=== PATIENT | male | born 1945 | race Caucasian/White ===

== ENCOUNTER 2021-07-19 13:33 | Emergency (ER) | payer OTHER ==
[2021-07-19 14:59] LABS: Absolute Lymphocytes (CBC) 0.2 K/uL (0.7-4.9); Basophils % 0.3 % (0-1.3); Hematocrit 41.7 % (39.6-49.0); Lymphocytes % 1.7 % (15.3-44.8); MPV 8.3 fL (7.6-11.3); RBC Red Blood Cell Count 4.95 M/uL (4.33-5.43)
[2021-07-19 15:03] LABS: Protime INR 1.13
[2021-07-19 15:10] LABS: ALT/SGPT 49 U/L (12-78); AST/SGOT 40 U/L (15-37); Albumin 3.7 g/dL (3.4-5.0); Alkaline Phosphatase 72 U/L (45-117); BUN Blood Urea Nitrogen 22 mg/dL (7-18); Bicarbonate 25 mmol/L (21-32); Bilirubin Direct 0.2 mg/dL (0-0.2); Bilirubin Total 0.5 mg/dL (0.2-1.0); CKMB Creatine Kinase MB 2.1 ng/mL (1.0-3.6); Creatine Phosphokinase 120 U/L (39-308); Glucose Level 137 mg/dL (74-106); Lipase 123 U/L (73-393); Magnesium 1.5 mg/dL (1.8-2.4); NT PRO-BNP 356 pg/mL (<125); Potassium 3.9 mmol/L (3.5-5.1); Protein, Total 7.9 g/dL (6.4-8.2); Sodium Level 142 mmol/L (136-145); Troponin (Emerg Dept Use Only) < 0.02 ng/mL (0.0-0.045)
[2021-07-19] MEDS ORDERED: AZITHROMYCIN 500 MG INJ IVPB ONE (15:44)
[2021-07-19] MEDS ORDERED: CEFTRIAXONE 1000 MG/VIAL ONE (15:44)
[2021-07-19] MEDS ORDERED: ALBUTEROL 2.5 MG/3 ML NEB SOL ONE (15:44)
[2021-07-19] MEDS ORDERED: NA CHLORIDE 0.9% 100 ML ONE (15:45)
[2021-07-19] MEDS ORDERED: NA CHLORIDE 0.9% 50 ML ONE (15:45)
[2021-07-19] MEDS ORDERED: IPRATROPIUM BROM 0.5MG/2.5ML ONE (15:45)
--- NOTE | 2021-07-19 16:20 | RAD REPORT ---
EXAM DESCRIPTION: Emil Single View07/19/2021 2:46 pm CLINICAL HISTORY: Congestion COMPARISON: 2008 FINDINGS: Right base is hazy likely secondary to epicardial fat. The remainder of the right lung ap pears clear. Left hilum is mildly prominent. Calcified lung granulomas The heart is normal size IMPRESSION: Left hilum is mildly prominent which may indicate lymphadenopathy or confluence of vess els
--- NOTE | 2021-07-19 16:31 | RAD REPORT ---
EXAM DESCRIPTION: CT - Chest For Pe Angio - 07/19/2021 4:12 pm CLINICAL HISTORY: Chest pain TECHNIQUE: Dynamically enhanced axial 3 mm thick images of the chest were obtained during administra tion of <100> mL Isovue 370 IV contrast. Coronal and oblique reconstruction images were generated and reviewed. Exam utilizes a protocol for optimal evaluation of pulmonary arterial tree. Maximum intensity projections 3D imaging was utilized All CT scans are performed using dose optimization technique as appropriate and may include automated exposure control or mA/KV adjustment according to patient size. FINDINGS: A small amount of thrombus is suspected within right lower lobe sub segmental pulmonary ar michel A thoracic aortic aneurysm is not noted. A pleural effusion is not seen. A pericardial effusion is not seen. A 5 x 3.5 centimeter soft tissue mass is present within left subcarinal region extending into the lef t hilum and occluding the left distal mainstem bronchus. Calcified lung granulomas. 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 The bronchus is occluded. Bronchoscopy is recommended
[2021-07-19] MEDS ORDERED: DIPHENHYDRAMINE 50 MG/ML VIAL ONE (16:47)
[2021-07-19 17:41] LABS: Blood Morphology Comment NOT SEEN (NOT SEEN); Platelet Estimate ADEQ; White Blood Cell Scan OK (OK)
--- NOTE | 2021-07-19 18:23 | EDPHYS ---
Physician Documentation [facility] Name: Lazaro Doll Age: 75 yrs Sex: Male : 1945 Arrival Date: 07/19/2021 Time: 13:48 Bed 17 Private MD: ED Physician Mary Kay Valente HPI: 07/19 14:07 This 75 yrs old Male presents to ER via EMS with complaints of Shortness Of ma2 Breath. 14:07 The patient has shortness of breath at rest. Onset: The symptoms/episode began/occurred ma2 gradually, 1 month(s) ago. Associated signs and symptoms: Pertinent positives: productive cough, Pertinent negatives: fever, loss of consciousness, numbness in extremities. Severity of symptoms: At their worst the symptoms were moderate in the emergency department the symptoms are unchanged. The patient has not experienced similar symptoms in the past. Historical: - Allergies: 13:57 Aspirin; sl2 13:57 Demerol; sl2 13:57 Ibuprofen; sl2 13:57 Unable to obtain; sl2 13:57 Morphine; sl2 13:57 Codeine; sl2 13:57 Latex, Natural Rubber; sl2 13:57 Sulfa (Sulfonamide Antibiotics); sl2 13:57 Iodine; sl2 13:57 Oxycodone; sl2 13:57 Tetanus Vaccines \\T\\ Toxoid; sl2 13:57 PENICILLINS; sl2 - Home Meds: 19:41 sertraline 100 mg oral tab twice a day [Active]; clonidine HCl 0.1 mg Oral tab 1 tab 3 sl2 times per day [Active]; atorvastatin 20 mg oral tab 1 tab once daily [Active]; metoprolol tartrate 50 mg Oral tab 1 tab 2 times per day [Active]; nifedipine 90 mg Oral TbER 1 tab once daily [Active]; - PMHx: 19:44 colon Cancer; Hypertensive disorder; chemo, Radiation; sl2 - PSHx: 19:44 bowel resection; sl2 - Immunization history:: Adult Immunizations up to date, Client reports receiving the 2nd dose of the Covid vaccine. - Social history:: Smoking status: Patient/guardian denies using tobacco, the patient reports quitting approximately 25 years ago, Smoking status: Patient uses alcohol, weekly. - Family history:: not pertinent. ROS: 14:07 Constitutional: Negative for fever, chills, and weight loss. ma2 14:07 All other systems are negative. Exam: 14:07 Constitutional: This is a well developed, well nourished patient who is awake, alert, ma2 and in no acute distress. ENT: Nares patent. No nasal discharge, no septal abnormalities noted. Tympanic membranes are normal and external auditory canals are clear. Oropharynx with no redness, swelling, or masses, exudates, or evidence of obstruction, uvula midline. Mucous membranes moist. Neck: Trachea midline, no thyromegaly or masses palpated, and no cervical lymphadenopathy. Supple, full range of motion without nuchal rigidity, or vertebral point tenderness. No Meningismus. Chest/axilla: Normal chest wall appearance and motion. Nontender with no deformity. No lesions are appreciated. Cardiovascular: Regular rate and rhythm with a normal S1 and S2. No gallops, murmurs, or rubs. Normal PMI, no JVD. No pulse deficits. Respiratory: left lung sounds is deminished and rales present, No rales. there is mild expiratory wheezes noted. + increased work of breathing, no retractions or nasal flaring. Abdomen/GI: Soft, non-tender, with normal bowel sounds. No distension or tympany. No guarding or rebound. No evidence of tenderness throughout. Back: No spinal tenderness. No costovertebral tenderness. Full range of motion. Skin: Warm, dry with normal turgor. Normal color with no rashes, no lesions, and no evidence of cellulitis. MS/ Extremity: Pulses equal, no cyanosis. Neurovascular intact. Full, normal range of motion. Neuro: Awake and alert, GCS 15, oriented to person, place, time, and situation. Cranial nerves II-XII grossly intact. Motor strength 5/5 in all extremities. Sensory grossly intact. Cerebellar exam normal. Normal gait. Vital Signs: 13:51 BP 129 / 71; Pulse 97; Resp 24; Temp 99.8; Pulse Ox 93% on R/A; sl2 14:00 BP 153 / 84; Pulse 99; Resp 22; Temp 99.8(O); Pulse Ox 95% on R/A; sl2 16:00 BP 167 / 85; Pulse 85; Resp 18; Temp 99.0; Pulse Ox 95% on R/A; sl2 17:00 BP 167 / 85; Pulse 92; Resp 18; Pulse Ox 96% on R/A; sl2 17:30 BP 167 / 88; Pulse 81; Resp 20; Temp 98.9(O); Pulse Ox 98% on R/A; sl2 18:37 BP 141 / 86; Pulse 71; Resp 18; Temp 98.7; Pulse Ox 96% ; sl2 19:45 BP 118 / 84; Pulse 70; Resp 18; Pulse Ox 96% on R/A; Pain 0/10; sl2 MDM: 13:51 Patient medically screened. ma2 14:07 Differential diagnosis: Anxiety Reaction asthma, Bronchitis CHF exacerbation, Chronic ma2 Obstructive Pulmonary Disease. 17:06 Data reviewed: vital signs, nurses notes, EMS record. Counseling: I had a detailed ma2 discussion with the patient and/or guardian regarding: the historical points, exam findings, and any diagnostic results supporting the discharge/admit diagnosis, the presence of at least one elevated blood pressure reading (>120/80) during this emergency department visit, the need for further work-up and treatment in the hospital. Response to treatment: the patient's symptoms have markedly improved after treatment. 18:13 ED course: Patient has right lung segmental PE, and left hilar mass, largest i diameter ma2 is 5 cm. 18:21 ED course: Patient has a PE and bronchial tumor, he needs pulmonary medicine which is [facility] not available I called Dr. Reid twice at 4 PM and 5 PM, no callback, and he is not on-call. Requested higher level of care transfer emergent, patient is accepted by Dr. BATEMAN and Dr. Valdez. 07/19 14:07 Order name: BMP ma2 07/19 14:07 Order name: Blood Culture Adult (2) ma2 07/19 14:07 Order name: CBC with Diff ma2 07/19 14:07 Order name: CPK; Complete Time: 15:28 ma2 07/19 14:07 Order name: Ckmb; Complete Time: 15:28 ma2 07/19 14:07 Order name: D-Dimer; Complete Time: 15:28 ma2 07/19 14:07 Order name: Hepatic Function; Complete Time: 15:28 ma2 07/19 14:07 Order name: Lipase; Complete Time: 15:28 ma2 07/19 14:07 Order name: Magnesium; Complete Time: 15:28 ma2 07/19 14:07 Order name: NT PRO-BNP; Complete Time: 15:28 ma2 07/19 14:07 Order name: PT-INR; Complete Time: 15:28 ma2 07/19 14:07 Order name: Ptt, Activated; Complete Time: 15:28 ma2 07/19 14:07 Order name: Troponin (emerg Dept Use Only); Complete Time: 15:28 ma2 07/19 14:07 Order name: Basic Metabolic Panel; Complete Time: 15:28 EDMS 07/19 14:07 Order name: EKG; Complete Time: 14:08 ma2 07/19 14:07 Order name: Cardiac monitoring; Complete Time: 14:39 ma2 07/19 14:07 Order name: EKG - Nurse/Tech; Complete Time: 15:09 ma2 07/19 14:07 Order name: IV Saline Lock; Complete Time: 14:43 ma2 07/19 14:07 Order name: CT Chest For PE Angio; Complete Time: 16:34 ma2 07/19 14:07 Order name: Blood Culture EDMS 07/19 14:07 Order name: CBC with Automated Diff; Complete Time: 18:10 EDMS 07/19 14:10 Order name: COVID-19 SARS RT PCR (Document "Date of Onset" if Symptomatic); Complete ma2 Time: 18:10 07/19 14:27 Order name: Chest Single View XRAY; Complete Time: 16:27 ma2 07/19 17:41 Order name: CBC Smear Scan; Complete Time: 18:10 EDMS 07/19 14:07 Order name: Labs collected and sent; Complete Time: 14:43 ma2 07/19 14:07 Order name: O2 Per Protocol; Complete Time: 14:39 ma2 07/19 14:07 Order name: O2 Sat Monitoring; Complete Time: 14:39 ma2 Administered Medications: 03:52 Drug: Benadryl (diphenhydrAMINE) 50 mg Route: IVP; Site: left forearm; sl2 18:40 Follow up: Response: No adverse reaction sl2 14:35 Drug: AtroVENT (ipratropium) Aerosol 0.5 mg Route: Inhalation; sl2 14:35 Drug: Xopenex (levalbuterol) 1.25 mg Route: Inhalation; sl2 15:30 Drug: Rocephin (cefTRIAXone) 1 grams Route: IV; Rate: calculated rate; Site: left sl2 forearm; 16:02 Follow up: Response: No adverse reaction; IV Status: Completed infusion; IV Intake: [id number] 18:39 Follow up: IV Status: Completed infusion; IV Intake: 50ml sl2 16:20 Drug: AZITHromycin 500 mg Route: IVPB; Infused Over: 1 hrs; Site: left forearm; sl2 18:39 Follow up: IV Status: Completed infusion; IV Intake: 250ml sl2 18:48 Drug: Lovenox (enoxaparin) 70 mg Route: Sub-Q; Site: right lower abdomen; sl2 Disposition Summary: 07/19/21 18:23 Transfer Ordered Transfer Location: [facility] ma2 Reason: Higher level of care ma2 Condition: Stable ma2 Problem: new ma2 Symptoms: are unchanged ma2 Accepting Physician: Dr. Gamboa(07/19/21 20:39) df1 Diagnosis - Pulmonary embolism without acute cor pulmonale - with lung mass ma2 Forms: - Medication Reconciliation Form ma2 - SBAR form ma2 Signatures: Dispatcher [employer] EDMS Mary Kay Valente MD MD ma2 Mireille Pool df1 Kelly Franco RN RN sl2 Corrections: (The following items were deleted from the chart) 13:58 13:57 Allergies: No Known Allergies; sl2 sl2 20:39 18:23 Dr. Gamboa ma2 df1
--- NOTE | 2021-07-19 18:23 | ER ---
Nurse's Notes [facility] Name: Lazaro Doll Age: 75 yrs Sex: Male : 1945 Arrival Date: 07/19/2021 Time: 13:48 Bed 17 Private MD: Diagnosis: Pulmonary embolism without acute cor pulmonale-with lung mass Presentation: 07/19 13:51 Chief complaint: EMS states: Patient AAO X 3, presented to ED via [facility] with sl2 complaint of Shortness of breath X 4 weeks, went to [facility] 3 weeks ago with same complaint, wast tested for Covid and was negative at that time. Today Increased SOB noted with no improvement post albuterol inhaler at home. Enroute to ED solumedrol 125mg IV and albuterol administered by EMS team. Coronavirus screen: Vaccine status: Patient reports receiving the 2nd dose of the covid vaccine. Ebola Screen: Patient negative for fever greater than or equal to 101.5 degrees Fahrenheit, and additional compatible Ebola Virus Disease symptoms. Initial Sepsis Screen: Does the patient meet any 2 criteria? No. Patient's initial sepsis screen is negative. Does the patient have a suspected source of infection? No. Patient's initial sepsis screen is negative. Risk Assessment: Do you want to hurt yourself or someone else? Patient reports no desire to harm self or others. Onset of symptoms. 13:51 Method Of Arrival: EMS: [facility] 13:51 Acuity: LUCIO 2 sl2 Triage Assessment: 13:57 General: Appears in no apparent distress. well developed, Behavior is calm, sl2 cooperative. Pain: Denies pain. Respiratory: Reports shortness of breath Breath sounds are diminished in left posterior upper lobe and left posterior lower lobe Onset: The symptoms/episode began/occurred 4 weeks ago . Respiratory: Reports cough that is productive, Airway is patent Trachea midline Respiratory effort is even, unlabored. GI: No deficits noted. : No deficits noted. Derm: No deficits noted. Musculoskeletal: No deficits noted. 20:38 Respiratory: df1 Historical: - Allergies: 13:57 Aspirin; sl2 13:57 Demerol; sl2 13:57 Ibuprofen; sl2 13:57 Unable to obtain; sl2 13:57 Morphine; sl2 13:57 Codeine; sl2 13:57 Latex, Natural Rubber; sl2 13:57 Sulfa (Sulfonamide Antibiotics); sl2 13:57 Iodine; sl2 13:57 Oxycodone; sl2 13:57 Tetanus Vaccines \T\ Toxoid; sl2 13:57 PENICILLINS; sl2 - Home Meds: 19:41 sertraline 100 mg oral tab twice a day [Active]; clonidine HCl 0.1 mg Oral tab 1 tab 3 sl2 times per day [Active]; atorvastatin 20 mg oral tab 1 tab once daily [Active]; metoprolol tartrate 50 mg Oral tab 1 tab 2 times per day [Active]; nifedipine 90 mg Oral TbER 1 tab once daily [Active]; - PMHx: 19:44 colon Cancer; Hypertensive disorder; chemo, Radiation; sl2 - PSHx: 19:44 bowel resection; sl2 - Immunization history:: Adult Immunizations up to date, Client reports receiving the 2nd dose of the Covid vaccine. - Social history:: Smoking status: Patient/guardian denies using tobacco, the patient reports quitting approximately 25 years ago, Smoking status: Patient uses alcohol, weekly. - Family history:: not pertinent. Screenin:06 Abuse screen: Denies threats or abuse. Nutritional screening: No deficits noted. sl2 Tuberculosis screening: No symptoms or risk factors identified. Fall Risk None identified. Assessment: 14:06 General: Appears in no apparent distress. well developed, Behavior is calm, sl2 cooperative. Pain: Denies pain. Neuro: No deficits noted. Cardiovascular: No deficits noted. Cardiovascular: Rhythm is sinus rhythm. Respiratory: Reports shortness of breath at rest on exertion cough that is productive, Airway is patent Trachea midline Respiratory effort is even, unlabored, Breath sounds are diminished in left posterior upper lobe and left posterior lower lobe. GI: No deficits noted. : No deficits noted. EENT: No deficits noted. Derm: No deficits noted. Musculoskeletal: No deficits noted. 14:38 Reassessment: Portable CXR in progress at bedside. sl2 17:30 Reassessment: Initiated transfer with [facility]. DX PE and Mass. Awaiting phone ss call back from transfer center. Spoke with IVO in lab who states that COVID results will take 30 more minutes. Vital Signs: 13:51 BP 129 / 71; Pulse 97; Resp 24; Temp 99.8; Pulse Ox 93% on R/A; sl2 14:00 BP 153 / 84; Pulse 99; Resp 22; Temp 99.8(O); Pulse Ox 95% on R/A; sl2 16:00 BP 167 / 85; Pulse 85; Resp 18; Temp 99.0; Pulse Ox 95% on R/A; sl2 17:00 BP 167 / 85; Pulse 92; Resp 18; Pulse Ox 96% on R/A; sl2 17:30 BP 167 / 88; Pulse 81; Resp 20; Temp 98.9(O); Pulse Ox 98% on R/A; sl2 18:37 BP 141 / 86; Pulse 71; Resp 18; Temp 98.7; Pulse Ox 96% ; sl2 19:45 BP 118 / 84; Pulse 70; Resp 18; Pulse Ox 96% on R/A; Pain 0/10; sl2 ED Course: 13:48 Patient arrived in ED. am2 13:50 Kelly Fracno RN is Primary Nurse. sl2 13:51 Mary Kay Valente MD is Attending Physician. ma2 13:57 Triage completed. sl2 13:57 Arm band placed on right wrist. sl2 14:06 Patient has correct armband on for positive identification. Placed in gown. Bed in low sl2 position. Side rails up X2. Adult w/ patient. 14:06 Maintain EMS IV. Dressing intact. Good blood return noted. Site clean \T\ dry. Gauge \T\ sl 2 site: # 20 left forearam. 14:46 Chest Single View XRAY In Process Unspecified. EDMS 14:50 EKG done, by ED staff, reviewed by Mary Kay Valente MD. dh3 16:12 CT Chest For PE Angio In Process Unspecified. EDMS 20:38 No provider procedures requiring assistance completed. Patient transferred, IV remains df1 in place. Administered Medications: 03:52 Drug: Benadryl (diphenhydrAMINE) 50 mg Route: IVP; Site: left forearm; sl2 18:40 Follow up: Response: No adverse reaction sl2 14:35 Drug: AtroVENT (ipratropium) Aerosol 0.5 mg Route: Inhalation; sl2 14:35 Drug: Xopenex (levalbuterol) 1.25 mg Route: Inhalation; sl2 15:30 Drug: Rocephin (cefTRIAXone) 1 grams Route: IV; Rate: calculated rate; Site: left sl2 forearm; 16:02 Follow up: Response: No adverse reaction; IV Status: Completed infusion; IV Intake: [id number] 18:39 Follow up: IV Status: Completed infusion; IV Intake: 50ml sl2 16:20 Drug: AZITHromycin 500 mg Route: IVPB; Infused Over: 1 hrs; Site: left forearm; sl2 18:39 Follow up: IV Status: Completed infusion; IV Intake: 250ml sl2 18:48 Drug: Lovenox (enoxaparin) 70 mg Route: Sub-Q; Site: right lower abdomen; sl2 Intake: 16:02 IV: 50ml; Total: 50ml. sl2 18:39 IV: 50ml; Total: 100ml. sl2 18:39 IV: 250ml; Total: 350ml. sl2 Outcome: 18:23 ER care complete, transfer ordered by . ma2 20:38 Transferred to [facility]. df1 20:38 Condition: stable 20:38 Instructed on the need for transfer, Demonstrated understanding of instructions. 20:39 Patient left the ED. df1 Signatures: Dispatcher [employer] EDMS Rebeca Pathak RN RN ss Moreno, Amanda am2 Herrera, Deanna 3 Mary Kay Valente MD MD ma2 Furlich, Dawn df1 Kelly Franco RN RN sl2 Corrections: (The following items were deleted from the chart) 13:58 13:57 Allergies: No Known Allergies; sl2 sl2
[2021-07-19] MEDS ORDERED: ENOXAPARIN 80 MG/0.8 ML SQ ONE (19:46)
[2021-07-19 20:57] VITALS: TEMP 98.7; O2SAT 96
[2021-07-19 20:59] VITALS: BP 118/84
== END 2021-07-19 20:39 | disposition short-term general hospital (02) ==
LOC: ER 13:33
DX: I26.99 Other pulmonary embolism without acute cor pulmonale (principal); R91.8 Other nonspecific abnormal finding of lung field; I10 Essential (primary) hypertension; Z20.822 Contact with and (suspected) exposure to COVID-19; Z85.038 Personal history of other malignant neoplasm of large intestine; Z88.0 Allergy status to penicillin; Z88.2 Allergy status to sulfonamides; Z88.5 Allergy status to narcotic agent; Z88.6 Allergy status to analgesic agent; Z88.7 Allergy status to serum and vaccine; Z91.040 Latex allergy status; Z91.048 Other nonmedicinal substance allergy status
CPT/HCPCS: 96365; 96367; 93005; 87040 ×2; 85025; 80048; 36415; 83735; 82550; 85610; 85379; 80076; 85730; 84484; 82553; 83690; 83880; 71275; 71045; 96375; 96372; 99285; 96366; U0003; Q9967; J1200; J0456

== ENCOUNTER 2022-02-08 18:26 | Inpatient (IN) | payer OTHER ==
--- OUTSIDE RECORDS SUMMARY | 2022-02-08 18:29 | XMS REPORT | Continuity of Care Document ---
:1945 Author Organization [facility] t Address [address] [place] [address] Care Team Providers Name Role Phone ARIELLA WELLER Primary Care Physician Unavailable FIONA Attending Clinician Unavailable DERICK Attending Clinician Unavailable Ariella Weller Attending Clinician [phone] ALFREDITO Attending Clinician Unavailable Fiona JOHNS Attending Clinician SARABJIT Attending Clinician Unavailable FELICITAS Attending Clinician Unavailable Jett MCRAE Attending Clinician Unavailable OLIVE SCHAEFER Attending Clinician Unavailable DERICK Admitting Clinician Unavailable CASANDRA REES Admitting Clinician Unavailable OLIVE SCHAEFER Admitting Clinician Unavailable Payers Payer Name Policy Type Policy Number Effective Date Expiration Date S jorge luis MEDICARE PART A [id number] \\T\\ [id number] - MEDICARE [facility] - [id number] 2012 [place] 00:00:00 [place] [id number] 2011 [place] 00:00:00 [place] [id number] [place] MEDICARE A B [id number] 2011 00:00:00 [place] [id number] 2014 00:00:00 Problems Condition Condition Condition Status Onset Resolution Last Treating Co mments Source Name Details Category Date Date Treatment Clinician Date 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[facility] cell cell 00:00: of carcinoma) carcinoma) 00 Me dicin of of e bronchus, bronchus, left left No known No known Disease [facility] active active College problems problems of Medicin e Allergies, Adverse Reactions, Alerts Allergy Allergy Status Severity Reaction(s) Onset Inactive Treating Comm ents Source Name Type Date Date Clinician Iodine Propensi Active Itching 2020-09 [facility] ty to -12 College adverse 00:00: of reaction 00 Medicin s to e drug IODINE Allergy Active High Hives 2018- [facility] AND 0-09 IODIDE 00:00: CONTAINI 00 NG PRODUCTS Social History Social Habit Start Date Stop Date Quantity Comments Source Exposure to Not sure [facility] Colleg e SARS-CoV-2 (event) of Med icine Alcohol intake 2022-01-09 2022-01-09 2.86 /d [facility] lege 00:00:00 00:00:00 of Medicine Tobacco use and 2021-07-30 2021-07-30 Former smokeless [facility] exposure 00:00:00 00:00:00 tobacco user of Medicine Cigarettes smoked 2021-07-30 2021-07-30 [facility] current (pack per 00:00:00 00:00:00 of Medi day) - Reported Cigarette 2021-07-30 2021-07-30 [facility] pack-years 00:00:00 00:00:00 of Medicine History of tobacco 1996-02-19 Cigarette Smoker [facility] use 00:00:00 of Medicine Sex [birth year] [facility] 00:00:00 00:00:00 of Medicine Smoking Status Start Date Stop Date Source Ex-smoker 2021-07-30 00:00:00 2021-07-30 00:00:00 [facility] C olleluci of Medicine Medications Ordered Filled Start Stop Current Ordering Indication Dosage Frequency Signature Comments Components Source Medication Medication Date Date Medication? Clinician (SIG) Name Name NIFEdipine Yes 90mg Take 90 mg [facility] Osmotic 4-22 by mouth Colle ge 90 MG TB24 11:24: daily. of 47 Medicin e sertraline Yes 100mg Take 100 [facility] (ZOLOFT) 4-22 mg by College 100 MG 11:24: mouth of tablet 47 daily. Medicin e clonidine Yes .1mg Take 0.1 [facility] (CATAPRES) 4-22 mg by College 0.1 MG 11:24: mouth two of tablet 47 times Medicin daily. e metoprolol Yes 50mg Take 50 mg [facility] (LOPRESSOR) 4-22 by mouth Tj ege 50 MG 11:24: two times of tablet 47 daily. Medicin e alprazolam 2020-09 Yes .5mg Take 1 [facility] (XANAX) 0.5 1-17 Tablet by Col lege MG tablet 00:00: mouth as of 00 needed Medicin (Take 1 e tab 30 minutes prior to your scans, if needed, may repeat dose 30 minutes after taking the inital dose.). clonidine 2020-09 Yes .1mg Take 0.1 [facility] (CATAPRES) 1-15 mg by [place] 0.1 MG 13:38: mouth two of tablet 50 times Medicin daily. e metoprolol 2020-09 Yes 50mg Take 50 mg [facility] (LOPRESSOR) 1-15 by mouth Tj ege 50 MG 13:38: two times of tablet 50 daily. Medicin e NIFEdipine 2020-09 Yes 90mg Take 90 mg [facility] CR Osmotic 1-15 by mouth Colle ge 90 MG TB24 13:38: daily. of 50 Medicin e sertraline 2020-09 Yes 100mg Take 100 [facility] (ZOLOFT) 1-15 mg by [place] 100 MG 13:38: mouth of tablet 50 daily. Medicin e clonidine 2020-09 Yes .1mg Take 0.1 [facility] (CATAPRES) 1-12 mg by [place] 0.1 MG 11:14: mouth two of tablet 08 times Medicin daily. e metoprolol 2020-09 Yes 50mg Take 50 mg [facility] (LOPRESSOR) 1-12 by mouth Tj ege 50 MG 11:14: two times of tablet 08 daily. Medicin e NIFEdipine 2020-09 Yes 90mg Take 90 mg [facility] CR Osmotic 1-12 by mouth Colle ge 90 MG TB24 11:14: daily. of 08 Medicin e sertraline 2020-09 Yes 100mg Take 100 [facility] (ZOLOFT) 1-12 mg by [place] 100 MG 11:14: mouth of tablet 08 daily. Medicin e albuterol 2020-09- No 2.5mg 2.5 mg by [facility] (PROVENTIL) 1-04 11-05 Inhalation C ollege (5 MG/ML) 00:00: 04:59 route two of 0.5% 00 :00 times Medicin nebulizer daily. e solution ipratropium 2020-09- No .5mg 0.5 mg by [facility] (ATROVENT) 09-23 Inhalation Co llege 0.02 % 00:00: 04:59 route of nebulizer 00 :00 every 6 Medicin solution hours as e needed. Sodium 2020-09- No 5mL 5 mL by [facility] Chloride 3 09-23 Inhalation Co llege % NEBU 00:00: 04:59 route two of 00 :00 times Medicin daily. e Sodium 2020-09- No 5mL 5 mL by [facility] Chloride 3 09-23 Inhalation Co llege % NEBU 00:00: 04:59 route two of 00 :00 times Medicin daily. e Sodium 2020-09- No 5mL 5 mL by [facility] Chloride 3 09-23 Inhalation Co llege % NEBU 00:00: 04:59 route two of 00 :00 times Medicin daily. e Apixaban 5 2020-09- No 5mg Take 5 mg [facility] MG TABS 09-23 by mouth College 00:00: 05:59 two times of 00 :00 daily. Medicin e Apixaban 5 2020-09- No 5mg Take 5 mg [facility] MG TABS 09-23 by mouth College 00:00: 05:59 two times of 00 :00 daily. Medicin e ipratropium 2020-09- No .5mg 0.5 mg by [facility] (ATROVENT) 09-23 Inhalation Co llege 0.02 % 00:00: 00:00 route of nebulizer 00 :00 every 6 Medicin solution hours as e needed. albuterol 2020-09- No 2.5mg 2.5 mg by [facility] (PROVENTIL) 09-23 Inhalation C ollege (5 MG/ML) 00:00: 00:00 route two of 0.5% 00 :00 times Medicin nebulizer daily. e solution albuterol 2020-09 Yes 1{puff} 1 Puff by [facility] 108 (90 0-26 Inhalation Colleg e base) 00:00: route of mcg/act 00 every 4 Medicin inhaler hours as e needed. albuterol 2020-09 Yes 1{puff} 1 Puff by [facility] 108 (90 0-26 Inhalation Colleg e base) 00:00: route of mcg/act 00 every 4 Medicin inhaler hours as e needed. albuterol 2020-09 Yes 1{puff} 1 Puff by [facility] 108 (90 0-26 Inhalation Colleg e base) 00:00: route of mcg/act 00 every 4 Medicin inhaler hours as e needed. atorvastati Yes 20mg Take 20 mg Jovany n (LIPITOR) 9-30 by mouth [facility]ge 20 MG 00:00: daily. of tablet 00 Medicin e atorvastati Yes 20mg Take 20 mg Jovany n (LIPITOR) 9-30 by mouth [facility]j ege 20 MG 00:00: daily. of tablet 00 Medicin e atorvastati Yes 20mg Take 20 mg Jovany n (LIPITOR) 9-30 by mouth Tj ege 20 MG 00:00: daily. of tablet 00 Medicin e Na Yes [SUPREP] [facility]ovany Sulfate-K 9-13 Take as College Sulfate-Mg 00:00: directed. of Sulf 00 Medicin (SUPREP e BOWEL PREP KIT) 17.5-3.13-1 .6 GM/177ML SOLN Na No [SUPREP] [facility] Sulfate-K 9-13 11-15 Take as Colleg e Sulfate-Mg 00:00: 00:00 directed. o f Sulf 00 :00 Medicin (SUPREP e BOWEL PREP KIT) 17.5-3.13-1 .6 GM/177ML SOLN Vital Signs Vital Name Observation Time Observation Value Comments Source Systolic blood 2022-01-09 16:20:00 124 mm[Hg] [facility] pressure Medicine Diastolic blood 2022-01-09 16:20:00 75 mm[Hg] [facility] Medicine Heart rate 2022-01-09 16:20:00 87 /min [facility] Respiratory rate 2022-01-09 16:20:00 16 /min [facility] Body height 2022-01-09 16:20:00 180.3 cm [facility] C [facility]lege of Medicine Body weight 2022-01-09 16:20:00 90.266 kg [facility] C [facility]lege of Medicine BMI 2022-01-09 16:20:00 27.75 kg/m2 [facility] ollege of Medicine Systolic blood 2021-08-04 19:50:00 158 mm[Hg] [facility] pressure Medicine Diastolic blood 2021-08-04 19:50:00 89 mm[Hg] [facility] pressure Medicine Heart rate 2021-08-04 19:26:00 61 /min [facility] ollege of Medicine Body temperature 2021-08-04 19:26:00 36.72 Jannet [facility] Body height 2021-08-04 19:26:00 180.3 cm [facility] ollege of Medicine Body weight 2021-08-04 19:26:00 88.179 kg [facility] ollege of [facility] BMI 2021-08-04 19:26:00 27.11 kg/m2 [facility] ollege of Medicine Systolic blood 2021-08-01 17:14:00 125 mm[Hg] [facility] pressure Medicine Diastolic blood 2021-08-01 17:14:00 75 mm[Hg] [facility] pressure Medicine Heart rate 2021-08-01 17:14:00 60 /min [facility] ollege of Medicine Body temperature 2021-08-01 17:14:00 37.11 Jannet [facility] Respiratory rate 2021-08-01 17:14:00 16 /min [facility] Body height 2021-08-01 17:14:00 180.3 cm [facility] of [facility] Body weight 2021-08-01 17:14:00 88.451 kg [facility] ollege of Medicine BMI 2021-08-01 17:14:00 27.20 kg/m2 [facility] of [facility] HEIGHT 2021-07-29 12:54:00 180.3 cm WEIGHT 2021-07-29 12:54:00 89.359 kg HEIGHT 2021-07-23 09:20:00 180.3 cm WEIGHT 2021-07-23 09:20:00 88.451 kg HEIGHT 2021-07-19 21:59:00 180.3 cm HEIGHT 2021-07-23 09:20:00 180.3 cm WEIGHT 2021-07-23 09:20:00 88.451 kg HEIGHT 2021-07-19 21:59:00 180.3 cm Procedures This patient has no known procedures. Plan of Care Planned Activity Planned Date Details Comments Source Future Scheduled 2022-01-12 COVID-19 Vaccine (1) [employer] Test 09:18:48 [code = COVID-19 of Medicine Vaccine (1)] Future Scheduled 2022-01-12 Pneumococcal 65+ (1 [facility] Test 09:18:48 of 4 - PCV13) [code of Medic ine = Pneumococcal 65+ (1 of 4 - PCV13)] Future Scheduled 2022-01-12 TETANUS SHOT (ADULT) [employer] Test 09:18:48 [code = TETANUS SHOT of Medi cine (ADULT)] Future Scheduled 2022-01-12 BMI FOLLOW UP PLAN [facility] r College Test 09:18:48 [code = BMI FOLLOW of Medici ne UP PLAN] Future Scheduled 2022-01-12 Hepatitis C [facility] Tj [facility]ge Test 09:18:48 screening of Medicine (procedure) [code = 511190993] Future Scheduled 2022-01-12 ZOSTER VACCINE (1 of [employer] Test 09:18:48 2) [code = ZOSTER of Medicin e VACCINE (1 of 2)] Future Scheduled 2022-01-12 MEDICARE AWV [facility] Test 09:18:48 (Initial) [code = of Medicin e MEDICARE AWV (Initial)] Future Scheduled 2022-01-12 Abdominal aortic [facility] Test 09:18:48 aneurysm screening of Medici ne (procedure) [code = 105962472] Future Scheduled 2022-01-12 FALL SCREEN [code = [facility] Test 09:18:48 FALL SCREEN] of Medicine Future Scheduled 2022-01-12 FLU VACCINE > 6 [facility] Test 09:18:48 MONTHS [code = FLU of Medici ne VACCINE > 6 MONTHS] Future Scheduled 2022-01-12 Screening for [facility] Test 09:18:48 malignant neoplasm of Medici ne of colon (procedure) [code = 012766258] Future Scheduled 2021-08-05 COVID-19 Vaccine (1) [employer] Test 17:20:41 [code = COVID-19 of Medicine Vaccine (1)] Future Scheduled 2021-08-05 TETANUS SHOT (ADULT) [employer] Test 17:20:41 [code = TETANUS SHOT of Medi cine (ADULT)] Future Scheduled 2021-08-05 BMI FOLLOW UP PLAN [facility] Test 17:20:41 [code = BMI FOLLOW of Medici ne UP PLAN] Future Scheduled 2021-08-05 Hepatitis C [facility] Test 17:20:41 screening of Medicine (procedure) [code = 125560730] Future Scheduled 2021-08-05 ZOSTER VACCINE (1 of [facility] College Test 17:20:41 2) [code = ZOSTER of Medicin e VACCINE (1 of 2)] Future Scheduled 2021-08-05 MEDICARE AWV [facility] Test 17:20:41 (Initial) [code = of Medicin e MEDICARE AWV (Initial)] Future Scheduled 2021-08-05 Abdominal aortic [facility] Test 17:20:41 aneurysm screening of Medici ne (procedure) [code = 267448009] Future Scheduled 2021-08-05 FALL SCREEN [code = [facility] Test 17:20:41 FALL SCREEN] of Medicine Future Scheduled 2021-08-05 Pneumococcal 65+ (1 [facility] [employer] Test 17:20:41 of 1 - PPSV23) [code of Medi cine = Pneumococcal 65+ (1 of 1 - PPSV23)] Future Scheduled 2021-08-05 FLU VACCINE > 6 [facility] Test 17:20:41 MONTHS [code = FLU of Medici ne VACCINE > 6 MONTHS] Future Scheduled 2021-08-05 Screening for [facility] Test 17:20:41 malignant neoplasm of Medici ne of colon (procedure) [code = 958076999] Future Scheduled 2021-08-04 MRI BRAIN W WO 1 Occurrences [facility] C [facility] Test 15:09:43 CONTRAST [code = starting of Medicine 29518-0] 08/04/2021 until 08/04/2022 Future Scheduled 2021-08-04 CT PET SKULL-BASE 1 Occurrences [facility] r [facility] Test 15:09:43 MID-THIGH (13300) starting of Medicin e [code = 57925] 08/04/2021 until 08/04/2022 Future Scheduled 2021-08-04 COVID-19 Vaccine (1) [employer] Test 10:19:08 [code = COVID-19 of Medicine Vaccine (1)] Future Scheduled 2021-08-04 TETANUS SHOT (ADULT) [employer] Test 10:19:08 [code = TETANUS SHOT of Medi cine (ADULT)] Future Scheduled 2021-08-04 BMI FOLLOW UP PLAN [facility] Test 10:19:08 [code = BMI FOLLOW of Medici ne UP PLAN] Future Scheduled 2021-08-04 Hepatitis C [facility] Test 10:19:08 screening of Medicine (procedure) [code = 189946486] Future Scheduled 2021-08-04 ZOSTER VACCINE (1 of [employer] Test 10:19:08 2) [code = ZOSTER of Medicin e VACCINE (1 of 2)] Future Scheduled 2021-08-04 MEDICARE AWV [facility] Test 10:19:08 (Initial) [code = of Medicin e MEDICARE AWV (Initial)] Future Scheduled 2021-08-04 Abdominal aortic [facility] Test 10:19:08 aneurysm screening of Medici ne (procedure) [code = 070548532] Future Scheduled 2021-08-04 FALL SCREEN [code = [facility] 10:19:08 FALL SCREEN] of Medicine Future Scheduled 2021-08-04 Pneumococcal 65+ (1 [facility] Test 10:19:08 of 1 - PPSV23) [code of Medi cine = Pneumococcal 65+ (1 of 1 - PPSV23)] Future Scheduled 2021-08-04 FLU VACCINE > 6 [facility] C [facility] Test 10:19:08 MONTHS [code = FLU of Medici ne VACCINE > 6 MONTHS] Future Scheduled 2021-08-04 Screening for [facility] Test 10:19:08 malignant neoplasm of Medici ne of colon (procedure) [code = 573216882] Encounters Start End Encounter Admission Attending Care Care Encounter Source Date/Time Date/Time Type Type Clinicians Facility Department ID 2022-01-09 2022-01-09 Outpatient [facility] [id number] [facility] 11:54:08 11:54:08 Colleg e of Medicin e 2022-01-09 2022-01-09 Office SEEMA JAIMES [id number] [facility] 11:15:33 11:50:48 Visit SUNJAY AMBULATOR [id number] College Y 0.2.7.2.686 of [id number] [facility] [place] 380 e 2021-11-17 2021-11-17 Outpatient [facility] [id number] [place] 02:56:00 02:56:00 [facility] 2021-11-17 2021-11-17 Outpatient Mckay [facility] [id number] 00:00:00 00:00:00 Juan Jose [id number] Ariella [id number] 2021-08-29 2021-08-29 Outpatient [facility] [id number] [place] 09:57:00 09:57:00 210 [facility] 2021-08-29 2021-08-29 Outpatient Mckay, [facility] [id number] 00:00:00 00:00:00 Juan Jose [id number] Ariella [id number] 2021-08-04 2021-08-[address] [facility] [id number] [facility] 13:17:19 15:27:44 Visit LORRAINE Randy [id number] Co llege 0.2.7.2.686 of [id number] [facility] [place] 504 e 2021-08-01 2021-08-01 Office SEEMA Jaimes [id number] [facility] 11:40:00 11:59:41 Visit Sunjay AMBULATOR 350.1.13.21 College Y 0.2.7.2.686 of [id number] [facility] [place] 380 e 2021-07-30 2021-07-30 Outpatient SEEMA JAIMES [facility] [id number] [facility] 00:00:00 00:00:00 LUZ MARINA Colleg e of Medicin e 2021-07-29 2021-07-29 Outpatient ROMEO FOST[facility] [id number] [facility] 12:38:53 12:38:53 ESTELLE 2021-07-29 2021-07-29 Outpatient ROMEO FOSTER [facility] [id number] [facility] 00:00:00 00:00:00 ESTELLE 2021-07-19 2021-07-24 Inpatient ER ROMEO MCRAE Pulmonology [id number] [facility] 21:23:00 16:28:00 RAMÓN 2021-07-19 2021-07-19 Outpatient [facility] [id number] [facility] 21:23:00 23:59:00 Colleg e of Medicin e 2021-07-01 2021-07-01 Outpatient [facility] [id number] - [place] 12:18:00 12:18:00 110 [facility] 2021-06-16 2021-06-16 Outpatient [facility] [id number] [place] 12:32:00 12:32:00 927 [facility] 2021-06-16 2021-06-16 Outpatient [facility] [id number] - [place] 12:32:00 12:32:00 012 [facility] 2021-06-16 2021-06-16 Outpatient Mckay [facility] [id number] 00:00:00 00:00:00 Juan Jose [id number] Ariella [id number] 2021-05-09 2021-05-09 Outpatient [facility] [id number] [place] 12:03:00 12:03:00 820 [facility] 2021-05-09 2021-05-09 Outpatient Mckay [facility] [id number] 00:00:00 00:00:00 Juan Jose [id number] Ariella [id number] 2021-05-09 2021-05-09 Outpatient Mckay [facility] [id number] 00:00:00 00:00:00 Juan Jose [id number] Ariella [id number] 2021-03-21 2021-03-21 Outpatient [facility] [id number] [place] 02:28:00 02:28:00 702 [facility] 2021-03-21 2021-03-21 Outpatient [facility] [id number] [place] 02:28:00 02:28:00 714 [facility] 2021-03-21 2021-03-21 Outpatient Weller, [facility] [id number] 00:00:00 00:00:00 Juan Jose [id number] Ariella [id number] 2020-10-28 2020-10-28 Outpatient [facility] [id number] [place] 09:28:00 09:28:00 208 [facility] 2020-10-22 2020-10-22 Outpatient [facility] [id number] [place] 12:25:00 12:25:00 202 [facility] 2020-10-22 2020-10-22 Outpatient Weller, [facility] [id number] 00:00:00 00:00:00 Juan Jose [id number] Ariella [id number] 2020-10-14 2020-10-14 Outpatient [facility] [id number] [place] 02:32:00 02:32:00 201 [facility] Results Test Description Test Time Test Comments Results Result Comments Source AFB CULTURE + SMEAR (NON-SPUTUM) 2021-09-08 08:43:29 Test Item Value Reference Range Interpretation Comme nts CULTURE (BEAKER) (test code = 1095) No acid-fast bacilli isolated i n 42 days AFB SMEAR (BEAKER) (test code = 994) No acid fast bacilli seen AFB CULTURE + SMEAR (NON-SPUTUM)2021-09-08 08:43:29 Test Item Value Reference Range Interpretation Comments CULTURE (BEAKER) (test No acid-fast bacilli code = 1095) isolated in 42 days AFB SMEAR (BEAKER) No acid fast bacilli (test code = 994) seen FUNGUS CULTURE + [id number] 00:05:33 Test Item Value Reference Range Interpretation Comments CULTURE (BEAKER) (test No fungus isolated in code = 1095) 28 days FUNGUS SMEAR (BEAKER) No fungal elements seen (test code = 1406) FUNGUS CULTURE + [id number] 00:05:33 Test Item Value Reference Range Interpretation Comments CULTURE (BEAKER) (test No fungus isolated in code = 1095) 28 days FUNGUS SMEAR (BEAKER) No fungal elements seen (test code = 1406) TISSUE [id number] 11:16:26Surgical Pathology Report Case: [id number] Authorizing Provider: Sven Us MD Collected: 07/23/2021 10:19 AM Ordering Location: [address] Received: 07/23/2021 02:41 PM Service Pathologist: Yady Keenan MD Specimen: Bronchus, Left, LEFT MAIN BRONCHUS POLYP Endobronschial bx removed via hot snare for biopsy REASON FOR ADDENDUM:TO REPORT ADDITIONAL IMMUNOSTAINS ON PART ARESULT:IMMUNOSTAIN FOR CDX- 2, SYNAPTOPHYSIN: NEGATIVE.CPTCODE:[id number] Addendum electronically signed by Yady Keenan MD on 08/11/2021 at 11:16 AMA. LEFT MAIN BRONCHUS, POLYP, ENDOBRONCHIAL BIOPSY: - SQUAMOUS CELL CARCINOMA, MODERATELY DIFFERENTIATED Signing Pathologist Direct Phone Line: [phone] signed by Yady Keenan MD on 07/24/2021 at 1:53 PMImmunostain for p40 is patchy positive, supporting the above diagnosis.[id number] massBronchus, leftReceived in formalin labeled the patient's name, accession number and "left main bronchus polyp" is a 1.8 x 0.9 x 0.3 cm aggregate of schuler-pink, focally anthracotic softtissue which is filtered and submitted in toto in A1.SILVER Reyna, HT (ASCP)Performed.The interpretation of this case included the use of immunohistochemistry or special stains.Control Slides Examined: In-house known positive controls were evaluated along with the test tissue. These control slides run alongside of the patients sample show appropriate staining. Internal positive and negative controls when available are evaluated Immunohistochemistry technical testing was performed at [facility], Pathology Laboratory where it was developed and its performance characteristics were determined. It has not been cleared or approved by the U.S. Food and Drug Administration. The FDA has determined that such clearance or approval is not necessary. The test is used for clinical purposes. It should not be regarded as investigational or for research. This laboratory is certified under the Clinical Laboratory Improvement Amendments of 1988 (CLIA-88) as qualified to perform highcomplexity clinical laboratory testing.BRONCHIAL CULTURE + GRAM [id number] 06:07:05 Test Item Value Reference Range Interpretation Comments CULTURE (BEAKER) <1+ Normal respiratory (test code = 1095) jessica present GRAM STAIN RESULT 1+ WBCs (BEAKER) (test code = 1123) GRAM STAIN RESULT No organisms seen (BEAKER) (test code = 40072) BRONCHIAL CULTURE + GRAM [id number] 06:06:05 Test Item Value Reference Range Interpretation Comments CULTURE (BEAKER) (test code No growth = 1095) GRAM STAIN RESULT (BEAKER) <1+ WBCs (test code = 1123) GRAM STAIN RESULT (BEAKER) No organisms seen (test code = 51129) [id number] 16:49:53Medical Cytology Report Case: [id number] Authorizing Provider: Sven Us MD Collected: 07/23/2021 12:01 PM Ordering Location: [address] Received: 07/23/2021 01:34 PM Service Pathologist: Amos Quintana MD Specimen: Lung, Left Lower Lobe POSITIVE FOR MALIG NANCY LUNG, LEFT, LOWER LOBE, BAL(CYTOSPINS): - POSITIVE FOR MALIGNANCY - SQUAMOUS CELL CARCINOMA Signing Pathologist Direct Phone Line: [phone] signed by Amos Quintana MD on 07/24/2021 at 4:49 PMPleasealso see surgical pathology report [id number] and cytopathology report [id number]. [id number], anxiety, prior cigarette smoking (30 p-y) and colon cancer (dx 2007, s/p surgical resection w radiation/chemo) who presented to an OSH due to HAYES, cough productive of whitish sputum w/ occ flecks of blood and fevers; OSH imaging showed R subsegmental PE and left main endobronchial compression, left hilar massLUNG, LEFT, LOWER LOBE, BAL Received 21 mls cytorich red fixative sample; prepared 4 cytospinsPerformed.[facility], Department of Pathology, [address] [place] [address], [facility], [facility] of [facility], [address] [place] [address], [facility]St[facility], Department of Pathology, [address] [place] [address], [id number] 16:35:36Medical Cytology Report Case: [id number] Authorizing Provider: Sven Us MD Collected: 07/23/2021 12:18 PM Ordering Location: [address] Received: 07/23/2021 01:34 PM Service Pathologist: Amos Quintana MD Specimen: Lung, Left, Bronchial washing POSITIVE FOR MALIGNANCY LUNG, LEFT, BRONCHIAL WASHING (CYTOSPINS AND CELL BLOCK): - POSITIVE FOR MALIGNANCY - SQUAMOUS CELL CARCINOMA SigningPathologist Direct Phone Line: [phone] signed by Amos Quintana MD on 07/24/2021 at 4:35 PMPlease also see surgical pathology report [id number] and cytopathology report [id number]. [id number], [id number], anxiety, prior cigarette smoking (30 p-y) and colon cancer (dx 2008, s/p surgical resection w radiation/chemo) who presented to an OSH due to HAYES, cough productive of whitish sputum w/ occflecks of blood and fevers; OSH imaging showed R subsegmental PE and left main endobronchial compression, left hilar massLUNG, LEFT, BRONCHIAL WASHINGReceived 26 mls bloody cytorich red fixative sample; prepared 4 cytospins and cell block(A2) - cell block fixed in formalin at 3:36 pm, 07/23/2021 Performed. [facility], Department of Pathology, [address] [place] [address], [facility], [facility] of [facility], [address] [place] [address], [facility], Department of Pathology, [address] [place] [address], JOQT/CONCENTRATION [id number] 14:13:40 Test Item Value Reference Range Interpretation Comments CONCENTRATION CHARGED (BEAKER) (test Done code = 2657) SPIN/CONCENTRATION [id number] 14:13:13 Test Item Value Reference Range Interpretation Comments CONCENTRATION CHARGED (BEAKER) (test Done code = 2657) [id number] 05:45:19 Test Item Value Reference Range Interpretation Comments PARTIAL THROMBOPLASTIN TIME 109.9 seconds 22.5-36.0 H (BEAKER) (test code = 760) CBC (HEMOGRAM ONLY)2021-07-24 05:26:48 Test Item Value Reference Range Interpretation Comments WHITE BLOOD CELL COUNT (BEAKER) 8.3 K/ L 3.5-10.5 (test code = 775) RED BLOOD CELL COUNT (BEAKER) 4.37 M/ L 4.63-6.08 L (test code = 761) HEMOGLOBIN (BEAKER) (test code = 12.2 GM/DL 13.7-17.5 L 410) HEMATOCRIT (BEAKER) (test code = 38.2 % 40.1-51.0 L 411) MEAN CORPUSCULAR VOLUME (BEAKER) 87.4 fL 79.0-92.2 (test code = 753) MEAN CORPUSCULAR HEMOGLOBIN 27.9 pg 25.7-32.2 (BEAKER) (test code = 751) MEAN CORPUSCULAR HEMOGLOBIN CONC 31.9 GM/DL 32.3-36.5 L (BEAKER) (test code = 752) RED CELL DISTRIBUTION WIDTH 13.8 % 11.6-14.4 (BEAKER) (test code = 412) PLATELET COUNT (BEAKER) (test 170 K/CU MM 150-450 code = 756) MEAN PLATELET VOLUME (BEAKER) 10.4 fL 9.4-12.4 (test code = 754) NUCLEATED RED BLOOD CELLS 0 /100 WBC 0-0 (BEAKER) (test code = 413) [id number] 22:13:34 Test Item Value Reference Range Interpretation Comments PARTIAL THROMBOPLASTIN TIME 57.0 seconds 22.5-36.0 H (BEAKER) (test code = 760) CYTOLOGY [id number] 15:00:37 Test Item Value Reference Range Interpretation Comments CYTOLOGY RESULT POINTER See Separate Report (BEAKER) (test code = 2629) CYTOLOGY [id number] 15:00:37 Test Item Value Reference Range Interpretation Comments CYTOLOGY RESULT POINTER See Separate Report (BEAKER) (test code = 2629) RAD, CHEST, 1 VIEW, NON [id number] 13:30:00Reason for exam:->TO R/O PNEUMOTHORAXShould this be performed at the bedside?->Yes [facility] : 1945 Sex: MFINAL REPORT CLINICAL HISTORY: TO R/O PNEUMOTHORAX TECHNIQUE: 1 view of the chest COMPARISON: None IMPRESSION: There is no pneumothorax. There is a left midlung calcified granuloma. There are no focal infiltrates or pleural effusions. The cardiomediastinal silhouetteis within normal limits for size. The visualized bones are intact. Signed: Doherty, Jareth MDReport Verified Date/Time: 07/23/2021 13:30:29 Reading Location: [facility] Radiology Reading Room FL, FLUORO, NON-SPECIFIC, UP TO 1 [id number] 11:30:00Reason for exam:->lung mass [facility] : 1945 Sex: MFluoroscopic unit utilized for a procedure performed in the OR. No interpretation was requested. Refer to the operative report for findings. Refer to PACS for patient radiation dose information.BASIC METABOLIC [id number] 07:31:14 Test Item Value Reference Range Interpretation Comments SODIUM (BEAKER) 140 meq/L 136-145 (test code = 381) POTASSIUM (BEAKER) 3.5 meq/L 3.5-5.1 (test code = 379) CHLORIDE (BEAKER) 109 meq/L 98-107 H (test code = 382) CO2 (BEAKER) (test 19 meq/L 22-29 L code = 355) BLOOD UREA NITROGEN 32 mg/dL 7-21 H (BEAKER) (test code = 354) CREATININE (BEAKER) 1.14 mg/dL 0.57-1.25 (test code = 358) GLUCOSE RANDOM 105 mg/dL 70-105 (BEAKER) (test code = 652) CALCIUM (BEAKER) 9.0 mg/dL 8.4-10.2 (test code = 697) EGFR (BEAKER) (test 63 mL/min/1.73 ESTIMA VASHTI GFR IS code = 1092) sq m NOT ACCURATE CREATININE CLEARANCE IN PREDICTING GLOMERULAR FILTRATION RATE . ESTIMATED GFR I S NOT APPLICABLE FOR DIALYSIS PATIEN TS. Behavior Therapist ID - CHRISTAL [id number] 06:22:29 Test Item Value Reference Range Interpretation Comments PARTIAL THROMBOPLASTIN TIME 28.7 seconds 22.5-36.0 (BEAKER) (test code = 760) PROTHROMBIN TIME/[id number] 06:21:54 Test Item Value Reference Range Interpretation Comments PROTIME (BEAKER) 12.9 seconds 11.9-14.2 (test code = 759) INR (BEAKER) (test 0.99 See_Comment [Automat ed message] code = 370) The system ascentify generated this result transmitted ref erence range: <=5.90. The reference range was not used to int erpret this result as normal/abnormal . RECOMMENDED COUMADIN/WARFARIN INR THERAPY RANGESSTANDARD DOSE: 2.0 - 3.0 Includes: PROPHYLAXIS forvenous thrombosis, systemic embolization; TREATMENT for venous thrombosis and/or pulmonary embolus.HIGH RISK: Target INR is 2.5-3.5 for patients with mechanical heart valves.CBC W/PLT COUNT & AUTO DIFFERENTIAL 2021-07-23 06:11:28 Test Item Value Reference Range Interpretation Comments WHITE BLOOD CELL COUNT (BEAKER) 10.1 K/ L 3.5-10.5 (test code = 775) RED BLOOD CELL COUNT (BEAKER) 4.31 M/ L 4.63-6.08 L (test code = 761) HEMOGLOBIN (BEAKER) (test code = 12.1 GM/DL 13.7-17.5 L 410) HEMATOCRIT (BEAKER) (test code = 36.9 % 40.1-51.0 L 411) MEAN CORPUSCULAR VOLUME (BEAKER) 85.6 fL 79.0-92.2 (test code = 753) MEAN CORPUSCULAR HEMOGLOBIN 28.1 pg 25.7-32.2 (BEAKER) (test code = 751) MEAN CORPUSCULAR HEMOGLOBIN CONC 32.8 GM/DL 32.3-36.5 (BEAKER) (test code = 752) RED CELL DISTRIBUTION WIDTH 13.7 % 11.6-14.4 (BEAKER) (test code = 412) PLATELET COUNT (BEAKER) (test 204 K/CU MM 150-450 code = 756) MEAN PLATELET VOLUME (BEAKER) 10.5 fL 9.4-12.4 (test code = 754) NUCLEATED RED BLOOD CELLS 0 /100 WBC 0-0 (BEAKER) (test code = 413) NEUTROPHILS RELATIVE PERCENT 82 % (BEAKER) (test code = 429) LYMPHOCYTES RELATIVE PERCENT 11 % (BEAKER) (test code = 430) MONOCYTES RELATIVE PERCENT 6 % (BEAKER) (test code = 431) EOSINOPHILS RELATIVE PERCENT 1 % (BEAKER) (test code = 432) BASOPHILS RELATIVE PERCENT 0 % (BEAKER) (test code = 437) NEUTROPHILS ABSOLUTE COUNT 8.29 K/ L 1.78-5.38 H (BEAKER) (test code = 670) LYMPHOCYTES ABSOLUTE COUNT 1.06 K/ L 1.32-3.57 L (BEAKER) (test code = 414) MONOCYTES ABSOLUTE COUNT (BEAKER) 0.62 K/ L 0.30-0.82 (test code = 415) EOSINOPHILS ABSOLUTE COUNT 0.06 K/ L 0.04-0.54 (BEAKER) (test code = 416) BASOPHILS ABSOLUTE COUNT (BEAKER) 0.02 K/ L 0.01-0.08 (test code = 417) IMMATURE GRANULOCYTES-RELATIVE 1 % 0-1 PERCENT (BEAKER) (test code = 2801) CBC (HEMOGRAM ONLY)2021-07-23 06:10:50 Test Item Value Reference Range Interpretation Comments WHITE BLOOD CELL COUNT (BEAKER) 10.1 K/ L 3.5-10.5 (test code = 775) RED BLOOD CELL COUNT (BEAKER) 4.31 M/ L 4.63-6.08 L (test code = 761) HEMOGLOBIN (BEAKER) (test code = 12.1 GM/DL 13.7-17.5 L 410) HEMATOCRIT (BEAKER) (test code = 36.9 % 40.1-51.0 L 411) MEAN CORPUSCULAR VOLUME (BEAKER) 85.6 fL 79.0-92.2 (test code = 753) MEAN CORPUSCULAR HEMOGLOBIN 28.1 pg 25.7-32.2 (BEAKER) (test code = 751) MEAN CORPUSCULAR HEMOGLOBIN CONC 32.8 GM/DL 32.3-36.5 (BEAKER) (test code = 752) RED CELL DISTRIBUTION WIDTH 13.7 % 11.6-14.4 (BEAKER) (test code = 412) PLATELET COUNT (BEAKER) (test 204 K/CU MM 150-450 code = 756) MEAN PLATELET VOLUME (BEAKER) 10.5 fL 9.4-12.4 (test code = 754) NUCLEATED RED BLOOD CELLS 0 /100 WBC 0-0 (BEAKER) (test code = 413) SARS-COV2/RT-PCR ([facility])2021-07-23 01:27:17 Test Item Value Reference Range Interpretation Comments SARS-COV2/RT-PCR (test code = Negative Negative [id number]) Negative result for this test determines that SARS-CoV-2 RNA was not present in the specimen above the Limit of Detection (LOD). However, Negative results do not preclude SARS-CoV-2 infection and should not be used as the sole basis for treatment or patient management decisions. Negative results must be combined with clinical observations, patient history, and epidemiological information. A false negative result may occur if a specimen is improperly collected, transported, or handled. A false negative result should be considered if patient's recent exposures or clinical presentation indicate that COVID-19 (SARS-CoV-2) is likely and diagnostic tests for other causes of illness are negative. Re-testing should be considered in cases of suspected false negatives.The limit of detection for this assay is 100 copies/mL.This SARS-CoV-2 test is a real-time RT_PCR test intended for the qualitative detection of nucleic acid from SARS-CoV-2 in a nasopharyngeal swab specimen collected from individuals suspected of COVID-19 by their healthcare provider.This test has not been Food and Drug Administration (FDA) cleared or approved. This is a modified version of an approved Emergency Use Authorization (EUA) and is in the process of review by the FDA. Once authorized by the FDA, the issued EUA will be e ffective until the declaration that circumstances exist justifying the authorization of the emergency use of in vitro diagnostic tests for detection and/or diagnosis of COVID-19 is terminated under Section 564(b)(2) of the Act or the EUA is revoked under Section 564(g) of the Act.Testing was performedusing the [place] SARS-CoV-2 assay.Fact Sheet for Healthcare Providers:https://www.[employer] [place]/randal/RT SARS-CoV-2 HCP Fact Sheet 51- 178206.pdfFact Sheet for Healthcare Patients:https://www.[employer] [place]/randal/RT SARS-CoV-2 Patient Fact Sheet EN 51-613979Q1.[id number] 00:57:52 Test Item Value Reference Range Interpretation Comments PARTIAL THROMBOPLASTIN TIME 61.1 seconds 22.5-36.0 H (BEAKER) (test code = 760) [id number] 17:33:20 Test Item Value Reference Range Interpretation Comments PARTIAL THROMBOPLASTIN TIME 47.6 seconds 22.5-36.0 H (BEAKER) (test code = 760) CT, [id number] 17:03:00Please pre-medicate with Benadryl prior to administration of iodinated contrast (itching)Unlisted Reason for Exam - Click Yes and Enter Reason Below->YesUnlisted Reason for Exam->New lung mass on exam, primary vs. metastasis from history of colon cancerWill this procedure require oral contrast?->No [facility] : 1945 Sex: MFINAL REPORT CT of the chest, abdomen and pelvis, with contrast C linical History: Unlisted Reason for ExamNeoplasm: colorectalNew lung mass on exam, primary vs. metastasis from history of colon cancer Technique: CT of the chest, abdomen and pelvis is performed withintravenous contrast administration. This exam was performed according to our departmental dose optimization program which includes automated exposure control, adjustment of the mA and/or kV accordingto patient's size and/or use of iterative reconstructive technique. Comparison Film: CT dated July 19, 2021, performed at an outside institution Discussion: Visualized thyroid gland is normal. No supraclavicular, or axillary lymphadenopathy. There is a mass in the left mainstem bronchus, possibly a ssociated with an extraluminal component, measuring approximately 4 x 2.7 x 1.4 cm. Heart and pericardium are unremarkable. There is partial occlusion /mucous plugging in the left upper and lower bronchi. Scattered centrilobular nodules in the left upper lobe likely reflect a postobstructive process. No consolidation. No effusion. Right lung is clear. No liver mass is identified. No biliary ductal dilatation, gallbladder is normal. Spleen, pancreas, and adrenal glands are normal. Kidneys demonstrateno hydronephrosis, or radiopaque stone. There are bilateral renal cysts, including a 5 cm cyst at the left upper pole. Status post low anterior resection. No bowel obstruction, or abnormal bowel wall thickening. There is mild presacral soft tissue thickening, nonspecific. Bladder, prostate and seminalvesicles are unremarkable. There are small fat-containing bilateral inguinal hernias. There is moderate vascular calcification. There are a few mildly prominent low-density meghan hepatis region lymph nodes that contain small foci of calcifications. Bony structures demonstrate degenerative changes. 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 No suspicious bony lesion is identified. IMPRESSION: There is an endoluminal lesion in the left mainstem bronchus, possibly with a small right extraluminal component, concerning for neoplasm. Suggest bronchoscopy and tissue diagnosis. Partial occlusion/mucus plugging of the left upper and lower bronchi. Scattered centrilobular nodules in the left upper lobe likely reflect postobstructive infectious/inflammatory bronchiolitis. There are a few borderline prominent low density meghan hepatis lymph nodes containing small calcifications, amenable to follow-up. Signed: Vania Monsalve MDReport Verified Date/Time: 07/22/2021 17:03:45 Reading Location: [address] Consult Reading Room CT, CHEST, WITH [id number] 17:03:00Please pre-medicate with Benadryl prior to administration of iodinated contrast (itching)Unlisted Reason for Exam - Click Yes and Enter Reason Below->No [facility] : 1945 Sex: MFINAL REPORT CT of the chest, abdomen and pelvis, with contrast C linical History: Unlisted Reason for ExamNeoplasm: colorectalNew lung mass on exam, primary vs. metastasis from history of colon cancer Technique: CT of the chest, abdomen and pelvis is performed withintravenous contrast administration. This exam was performed according to our departmental dose optimization program which includes automated exposure control, adjustment of the mA and/or kV accordingto patient's size and/or use of iterative reconstructive technique. Comparison Film: CT dated July 19, 2021, performed at an outside institution Discussion: Visualized thyroid gland is normal. No supraclavicular, or axillary lymphadenopathy. There is a mass in the left mainstem bronchus, possibly a ssociated with an extraluminal component, measuring approximately 4 x 2.7 x 1.4 cm. Heart and pericardium are unremarkable. There is partial occlusion /mucous plugging in the left upper and lower bronchi. Scattered centrilobular nodules in the left upper lobe likely reflect a postobstructive process. No consolidation. No effusion. Right lung is clear. No liver mass is identified. No biliary ductal dilatation, gallbladder is normal. Spleen, pancreas, and adrenal glands are normal. Kidneys demonstrateno hydronephrosis, or radiopaque stone. There are bilateral renal cysts, including a 5 cm cyst at the left upper pole. Status post low anterior resection. No bowel obstruction, or abnormal bowel wall thickening. There is mild presacral soft tissue thickening, nonspecific. Bladder, prostate and seminalvesicles are unremarkable. There are small fat-containing bilateral inguinal hernias. There is moderate vascular calcification. There are a few mildly prominent low-density meghan hepatis region lymph nodes that contain small foci of calcifications. Bony structures demonstrate degenerative changes. 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 No suspicious bony lesion is identified. IMPRESSION: There is an endoluminal lesion in the left mainstem bronchus, possibly with a small right extraluminal component, concerning for neoplasm. Suggest bronchoscopy and tissue diagnosis. Partial occlusion/mucus plugging of the left upper and lower bronchi. Scattered centrilobular nodules in the left upper lobe likely reflect postobstructive infectious/inflammatory bronchiolitis. There are a few borderline prominent low density meghan hepatis lymph nodes containing small calcifications, amenable to follow-up. Signed: Vania Monsalve MDReport Verified Date/Time: 07/22/2021 17:03:45 Reading Location: [facility] C[address]X [facility] Consult Reading Room [id number] 15:17:05 Test Item Value Reference Range Interpretation Comments PARTIAL THROMBOPLASTIN TIME 134.9 seconds 22.5-36.0 H (BEAKER) (test code = 760) [id number] 03:25:11 Test Item Value Reference Range Interpretation Comments PARTIAL THROMBOPLASTIN TIME 29.0 seconds 22.5-36.0 (BEAKER) (test code = 760) [id number] 01:59:09 Test Item Value Reference Range Interpretation Comments PARTIAL THROMBOPLASTIN TIME > seconds 22.5-36.0 HH (BEAKER) (test code = 760) [id number] 22:45:12 Test Item Value Reference Range Interpretation Comments PARTIAL THROMBOPLASTIN TIME > seconds 22.5-36.0 HH (BEAKER) (test code = 760) [id number] 16:34:28 Test Item Value Reference Range Interpretation Comments PARTIAL THROMBOPLASTIN TIME 33.2 seconds 22.5-36.0 (BEAKER) (test code = 760) [id number] 09:30:02 Test Item Value Reference Range Interpretation Comments PARTIAL THROMBOPLASTIN TIME 50.4 seconds 22.5-36.0 H (BEAKER) (test code = 760) BASIC METABOLIC [id number] 07:34:56 Test Item Value Reference Range Interpretation Comments SODIUM (BEAKER) 143 meq/L 136-145 (test code = 381) POTASSIUM (BEAKER) 4.0 meq/L 3.5-5.1 (test code = 379) CHLORIDE (BEAKER) 109 meq/L 98-107 H (test code = 382) CO2 (BEAKER) (test 26 meq/L 22-29 code = 355) BLOOD UREA NITROGEN 22 mg/dL 7-21 H (BEAKER) (test code = 354) CREATININE (BEAKER) 1.02 mg/dL 0.57-1.25 (test code = 358) GLUCOSE RANDOM 99 mg/dL 70-105 (BEAKER) (test code = 652) CALCIUM (BEAKER) 9.6 mg/dL 8.4-10.2 (test code = 697) EGFR (BEAKER) (test 71 mL/min/1.73 ESTIMA VASHTI GFR IS code = 1092) sq m NOT ACCURATE CREATININE CLEARANCE IN PREDICTING GLOMERULAR FILTRATION RATE . ESTIMATED GFR I S NOT APPLICABLE FOR DIALYSIS PATIEN TS. Behavior Therapist ID - [id number] 07:21:21 Test Item Value Reference Range Interpretation Comments PARTIAL THROMBOPLASTIN TIME 122.7 seconds 22.5-36.0 H (BEAKER) (test code = 760) [id number] 16:17:39 Test Item Value Reference Range Interpretation Comments PARTIAL THROMBOPLASTIN TIME 74.3 seconds 22.5-36.0 H (BEAKER) (test code = 760) SARS-COV2/RT-PCR ([facility])2021-07-20 10:11:13 Test Item Value Reference Range Interpretation Comments SARS-COV2/RT-PCR (test Negative Not Detected, Negative, code = 9373443) See external report for linked test SARS-COV-2 PERFORMING LAB [facility] (test code = 9305650) Negative result for this test determines that SARS-CoV-2 RNA was not present in the specimen above the Limit of Detection (LOD). However, Negative results do not preclude SARS-CoV-2 infection and should not be used as the sole basis for treatment or patient management decisions. Negative results mustbe combined with clinical observations, patient history, and epidemiological information. A false negative result may occur if a specimen is improperly collected, transported or handled. A false negative result should be considered if patient's recent exposures or clinical presentation indicate that COVID-19 (SARS-CoV-2) is likely and diagnostic tests for other causes of illness are negative. Re-testing should be considered in cases of suspected false negatives.The limit of detection for this assay is 800 copies/mL.This SARS CoV-2 test is a real-time RT-PCR test intended for the qualitative detection of nucleic acid from SARS-CoV-2 in a nasopharyngeal swab specimen collected from individuals susp ected of COVID-19 by their healthcare provider.This test has not been Food and Drug Administration (FDA) cleared or approved. This is a modified version of an approved Emergency Use Authorization (EUA) and is in the process of review by the FDA. Once authorized by the FDA, the issued EUA will be effective until the declaration that circumstances exist justifying the authorization of the emergency use of in vitro diagnostic tests for detection and/or diagnosis of COVID-19 is terminated under Section 564(b)(2) of the Act or the EUA is revoked under Section 564(g) of the Act.Fact Sheet for Healthcare Providers:https://www.[employer]/sites/default/files/product/documents/Fact_Shee b_WW_Zfbzkhlgj_Spca_MROW-JpC-6.pdfFact Sheet for Healthcare Patients:https://www.[employer]/sites/default/files/product/ documents/Risb_Ddnii_Ogvkmwaf_Stvx_OWLS-VrW-8.pdfPerforming Laboratory:[facility] [place], [place] [id number] 09:14:47 Test Item Value Reference Range Interpretation Comments PARTIAL THROMBOPLASTIN TIME 79.4 seconds 22.5-36.0 H (BEAKER) (test code = 760) LACTATE DEHYDROGENASE (LDH)2021-07-20 01:43:40 Test Item Value Reference Range Interpretation Comments LACTATE DEHYDROGENASE (BEAKER) (test 169 U/L 125-220 code = 635) Behavior Therapist ID - DBCOMPREHENSIVE METABOLIC [id number] 01:43:39 Test Item Value Reference Range Interpretation Comments TOTAL PROTEIN 7.2 gm/dL 6.0-8.3 (BEAKER) (test code = 770) ALBUMIN (BEAKER) 3.9 g/dL 3.5-5.0 (test code = 1145) ALKALINE PHOSPHATASE 67 U/L 40-150 (BEAKER) (test code = 346) BILIRUBIN TOTAL 0.3 mg/dL 0.2-1.2 (BEAKER) (test code = 377) SODIUM (BEAKER) (test 140 meq/L 136-145 code = 381) POTASSIUM (BEAKER) 3.2 meq/L 3.5-5.1 L (test code = 379) CHLORIDE (BEAKER) 107 meq/L 98-107 (test code = 382) CO2 (BEAKER) (test 20 meq/L 22-29 L code = 355) BLOOD UREA NITROGEN 22 mg/dL 7-21 H (BEAKER) (test code = 354) CREATININE (BEAKER) 1.19 mg/dL 0.57-1.25 (test code = 358) GLUCOSE RANDOM 175 mg/dL 70-105 H (BEAKER) (test code = 652) CALCIUM (BEAKER) 9.2 mg/dL 8.4-10.2 (test code = 697) AST (SGOT) (BEAKER) 31 U/L 5-34 (test code = 353) ALT (SGPT) (BEAKER) 37 U/L 6-55 (test code = 347) EGFR (BEAKER) (test 60 mL/min/1.73 ESTIMA VASHTI GFR IS code = 1092) sq m NOT ACCURATE CREATININE CLEARANCE IN PREDICTING GLOMERULAR FILTRATION RATE . ESTIMATED GFR I S NOT APPLICABLE FOR DIALYSIS PATIEN TS. Behavior Therapist ID - [id number] 01:43:39 Test Item Value Reference Range Interpretation Comments MAGNESIUM (BEAKER) (test code = 1.8 mg/dL 1.6-2.6 627) Behavior Therapist ID - [id number] 01:42:37 Test Item Value Reference Range Interpretation Comments PARTIAL THROMBOPLASTIN TIME 36.7 seconds 22.5-36.0 H (BEAKER) (test code = 760) CBC W/PLT COUNT & AUTO [id number] 01:25:32 Test Item Value Reference Range Interpretation Comments WHITE BLOOD CELL COUNT (BEAKER) 8.8 K/ L 3.5-10.5 (test code = 775) RED BLOOD CELL COUNT (BEAKER) 4.66 M/ L 4.63-6.08 (test code = 761) HEMOGLOBIN (BEAKER) (test code = 13.0 GM/DL 13.7-17.5 L 410) HEMATOCRIT (BEAKER) (test code = 39.8 % 40.1-51.0 L 411) MEAN CORPUSCULAR VOLUME (BEAKER) 85.4 fL 79.0-92.2 (test code = 753) MEAN CORPUSCULAR HEMOGLOBIN 27.9 pg 25.7-32.2 (BEAKER) (test code = 751) MEAN CORPUSCULAR HEMOGLOBIN CONC 32.7 GM/DL 32.3-36.5 (BEAKER) (test code = 752) RED CELL DISTRIBUTION WIDTH 13.4 % 11.6-14.4 (BEAKER) (test code = 412) PLATELET COUNT (BEAKER) (test 193 K/CU MM 150-450 code = 756) MEAN PLATELET VOLUME (BEAKER) 10.4 fL 9.4-12.4 (test code = 754) NUCLEATED RED BLOOD CELLS 0 /100 WBC 0-0 (BEAKER) (test code = 413) NEUTROPHILS RELATIVE PERCENT 95 % (BEAKER) (test code = 429) LYMPHOCYTES RELATIVE PERCENT 3 % (BEAKER) (test code = 430) MONOCYTES RELATIVE PERCENT 2 % (BEAKER) (test code = 431) EOSINOPHILS RELATIVE PERCENT 0 % (BEAKER) (test code = 432) BASOPHILS RELATIVE PERCENT 0 % (BEAKER) (test code = 437) NEUTROPHILS ABSOLUTE COUNT 8.37 K/ L 1.78-5.38 H (BEAKER) (test code = 670) LYMPHOCYTES ABSOLUTE COUNT 0.26 K/ L 1.32-3.57 L (BEAKER) (test code = 414) MONOCYTES ABSOLUTE COUNT (BEAKER) 0.14 K/ L 0.30-0.82 L (test code = 415) EOSINOPHILS ABSOLUTE COUNT 0.00 K/ L 0.04-0.54 L (BEAKER) (test code = 416) BASOPHILS ABSOLUTE COUNT (BEAKER) 0.01 K/ L 0.01-0.08 (test code = 417) IMMATURE GRANULOCYTES-RELATIVE 1 % 0-1 PERCENT (BEAKER) (test code = 2801) TISSUE [id number] 17:50:00Surgical Pathology Report Case: [id number] Authorizing Provider: Flaco Schaefer Olive Collected: 06/29/2019 1602 MD Blanca Ordering Location: [facility] Endoscopy Received: 06/30/2019 0825 Services Pathologist: Miya Amador MD Specimen: Polyp, Colon - Hepatic Flexure, emr polyp x 2 COLON, HEPATIC FLEXURE, POLYPECTOMY: - PIECES OF TUBULAR ADENOMAS (SEE COMMENT) Signing Pathologist Direct Phone Line: [phone] signed by Miya Amador MD on 07/03/2019 at 5:50 PMThe specimen is received in multiple fragments. Sections show several fragments of tubular adenomas. Although very focal features are suggestive of high grade dysplasia, those features are not sufficiently diagnostic ofhigh grade dysplasia. No diagnostic features of malignancy are seen. Due to the fragmented nature ofthe specimen, the margin status cannot be appropriately evaluated. Clinical correlation is recommended. [id number]: colonoscopy, submucosal resectionPre and postop diagnosis: tubular adenoma of colonPolyp, colon - hepatic flexure, EMR polyp [id number] in formalin labeled with the patient's name, accession number and "polyp, colon - hepatic flexure, EMR polyp x2" is a 2.2 x 1.0 x 0.4 cm aggregate of multiple pieces of schuler-brown, irregular to polypoid, mucosal-covered tissues. One piece of tissue,measuring 0.7 x 0.5 x 0.4 cm, contains a 0.3 cm long x 0.2 cm in diameter stalk. The base is inked bl ue and the specimen is bisected to reveal a schuler-pink, polypoid cut surface. Also included with the specimen are multiple schuler-brown to yellow fragments of organic material. The specimen is submitted entirely, following filtration in cassettes A1 to A2. SS/plPerformed.
--- NOTE | 2022-02-08 19:16 | RAD REPORT ---
EXAM DESCRIPTION: RAD - Chest Single View - 02/08/2022 6:59 pm CLINICAL HISTORY: SOB Chest pain. COMPARISON: Chest Single View dated 07/19/2021; CHEST SINGLE VIEW dated 10/03/2008; ABDOMEN ACUTE SER IES dated 09/29/2008; CHEST PA AND LAT 2 VIEW dated 08/01/2008; Ct Skull/Thigh dated 02/05/2022; CT RAD RX FIELD SPINE dated 09/02/2021 FINDINGS: Portable technique limits examination quality. [id number] opacity is present in the left hilar region. The right lung is grossly clear. The he art is upper limit normal in size. No displaced fractures.
[2022-02-08 20:21] LABS: Absolute Lymphocytes (CBC) 0.5 K/uL (0.7-4.9); Hematocrit 32.2 % (39.6-49.0); Lymphocytes % 3.6 % (15.3-44.8); MPV 7.2 fL (7.6-11.3)
[2022-02-08 20:30] LABS: Protime INR 1.45
[2022-02-08 20:38] LABS: Albumin 2.8 g/dL (3.4-5.0); Bilirubin Direct 0.2 mg/dL (0-0.2); Bilirubin Total 0.3 mg/dL (0.2-1.0); Magnesium 1.7 mg/dL (1.8-2.4); Protein, Total 7.6 g/dL (6.4-8.2); Troponin High Sensitivity 9.1 pg/mL (<58.9)
[2022-02-08 20:47] LABS: Platelet Estimate ADEQ; White Blood Cell Scan OK (OK)
[2022-02-08 20:48] LABS: Blood Morphology Comment NOT SEEN (NOT SEEN)
--- NOTE | 2022-02-08 21:52 | EDPHYS ---
Physician Documentation [facility] Name: Lazaro Doll Age: 76 yrs Sex: Male : 1945 Arrival Date: 02/08/2022 Time: 18:31 Bed 28 Private MD: ED Physician Alfredito Brown HPI: 02/08 18:55 This 76 yrs old Male presents to ER via Ambulatory with complaints of Shortness Of cp Breath. 18:55 The patient has shortness of breath at rest. cp 18:55 Onset: The symptoms/episode began/occurred gradually, for weeks. cp 18:55 Duration: The symptoms are continuous, and are steadily getting worse. Associated signs cp and symptoms: Pertinent positives: non-productive cough, Pertinent negatives: chest pain, diaphoresis, fever, hemoptysis. Severity of symptoms: in the emergency department the symptoms are unchanged despite home interventions. Historical: - Allergies: 18:41 Aspirin; ss 18:41 Codeine; ss 18:41 Demerol; ss 18:41 Ibuprofen; ss 18:41 Iodine; ss 18:41 Latex, Natural Rubber; ss 18:41 Morphine; ss 18:41 Oxycodone; ss 18:41 PENICILLINS; ss 18:41 Sulfa (Sulfonamide Antibiotics); ss 18:41 Tetanus Vaccines \\T\\ Toxoid; ss 18:41 Unable to obtain; ss - PMHx: 18:41 chemo, Radiation; colon cancer; Hypertensive disorder; Lung CA; ss - PSHx: 18:41 bowel resection; ss - Immunization history:: Client reports receiving the 2nd dose of the Covid vaccine. - Social history:: Smoking status: Patient denies any tobacco usage or history of. ROS: 19:00 Constitutional: Negative for body aches, fever, poor PO intake. cp 19:00 Eyes: Negative for injury, pain, redness, and discharge. cp 19:00 ENT: Negative for drainage from ear(s), ear pain, sore throat, difficulty swallowing, difficulty handling secretions. 19:00 Cardiovascular: Negative for chest pain, edema, palpitations. 19:00 Respiratory: Positive for cough, "sounds productive", shortness of breath, at rest. 19:00 Abdomen/GI: Negative for abdominal pain, nausea, vomiting, and diarrhea. 19:00 Back: Negative for pain at rest, pain with movement. 19:00 Neuro: Negative for altered mental status, dizziness, headache, weakness. 19:00 All other systems are negative. Exam: 02/09 19:05 Constitutional: The patient appears in no acute distress, alert, awake, cp non-diaphoretic, non-toxic, well developed, well nourished, in obvious distress, mildly distressed. 19:05 Head/Face: Normocephalic, atraumatic. cp 19:05 Eyes: Periorbital structures: appear normal, Conjunctiva: normal, no exudate, no injection, Sclera: no appreciated abnormality, Lids and lashes: appear normal, bilaterally. 19:05 ENT: External ear(s): are unremarkable, Nose: is normal, Mouth: Lips: moist, Oral mucosa: pink and intact, moist, Posterior pharynx: Airway: no evidence of obstruction, patent. 19:05 Neck: ROM/movement: is normal, is supple, without pain, no range of motions limitations, no meningismus. 19:05 Chest/axilla: Inspection: normal, Palpation: is normal, no crepitus, no tenderness. 19:05 Cardiovascular: Rate: tachycardic, Rhythm: regular, Edema: is not appreciated, JVD: is not appreciated. 19:05 Respiratory: mild respiratory distress is noted, Respirations: labored breathing, that is moderate, intercostal retractions, are absent, Breath sounds: bronchial sounds, that are moderate, are heard diffusely, stridor, is not appreciated. 19:05 Abdomen/GI: Inspection: distension, that is mild, Bowel sounds: active, all quadrants, Palpation: abdomen is soft and non-tender, in all quadrants. 19:05 Back: pain, is absent, ROM is normal. 19:05 Neuro: Orientation: to person, place \\T\\ time. Mentation: is normal, Motor: moves all fours, strength is normal, Sensation: is normal. Vital Signs: 02/08 18:32 BP 132 / 70; Pulse 106; Resp 19; Temp 98.3(O); Pulse Ox 90% on R/A; Weight 88.45 kg; ss Height 5 ft. 11 in. (180.34 cm); Pain 0/10; 18:32 Body Mass Index 27.20 (88.45 kg, 180.34 cm) Procedures: 22:05 Peripheral line: by aseptic technique a peripheral line was placed in the left external pilar jugular vein. MDM: 18:37 Patient medically screened. cp 22:00 Data reviewed: vital signs, nurses notes, lab test result(s), EKG, radiologic studies, cp plain films. 22:00 Test interpretation: by ED physician or midlevel provider: ECG, plain radiologic cp studies. 02/08 18:45 Order name: Basic Metabolic Panel; Complete Time: 20:48 cp 02/08 20:48 Interpretation: GLUC 109; BUN 20; GFR 83; Reviewed. cp 02/08 18:45 Order name: CBC with Diff; Complete Time: 20:48 cp 02/08 20:26 Interpretation: Normal except: WBC 13.1; RBC 4.00; HGB 10.8; HCT 32.2; MCV 80.5; MCH cp 26.9; RDW 16.3; MPV 7.2; NOEL% 89.5; LYM% 3.6; NEUT A 11.8; LYMA 0.5. 02/08 18:45 Order name: LFT's; Complete Time: 20:48 cp 02/08 21:44 Interpretation: Normal except: ALB 2.8; GLOB 4.8; A/G 0.6. cp 02/08 18:45 Order name: Magnesium; Complete Time: 20:48 cp 02/08 18:45 Order name: NT PRO-BNP; Complete Time: 20:48 cp 02/08 18:45 Order name: PT-INR; Complete Time: 20:48 cp 02/08 18:45 Order name: Troponin HS; Complete Time: 20:48 cp 02/08 20:29 Order name: Procalcitonin; Complete Time: 21:43 cp 02/08 21:43 Interpretation: Abnormal: Procalcitonin 0.29. cp 02/08 20:29 Order name: Lactate; Complete Time: 22:00 cp 02/08 20:29 Order name: Blood Culture Adult (2); Complete Time: 03:35 cp 02/08 20:48 Order name: CBC Smear Scan; Complete Time: 20:48 EDMS 02/09 00:19 Order name: COVID-19 SARS RT PCR (Document "Date of Onset" if Symptomatic) [email or web address] 02/08 18:45 Order name: XRAY Chest (1 view); Complete Time: 19:48 cp 02/08 18:45 Order name: EKG; Complete Time: 18:46 cp 02/08 18:45 Order name: Cardiac monitoring; Complete Time: 22:01 cp 02/09 01:32 Order name: SARS-COV-2 RT PCR; Complete Time: 03:35 EDMS 02/09 09:16 Order name: CBC with Automated Diff; Complete Time: 03:35 EDMS 02/09 09:33 Order name: Comprehensive Metabolic Panel; Complete Time: 03:35 EDAK 02/09 09:33 Order name: Magnesium; Complete Time: 03:35 EDAK 02/08 18:45 Order name: EKG - Nurse/Tech; Complete Time: 06:13 cp 02/08 18:45 Order name: IV Saline Lock; Complete Time: 22:01 cp 02/08 18:45 Order name: Labs collected and sent; Complete Time: 22:01 cp 02/08 18:45 Order name: O2 Per Protocol; Complete Time: 22:01 cp 02/08 18:45 Order name: O2 Sat Monitoring; Complete Time: 22:01 cp Administered Medications: 21:43 CANCELLED (Physician Discretion): Zithromax (azithromycin) 500 mg IVPB once over 1 hrs; cp mix in 250 mL NS 21:44 CANCELLED (Physician Discretion): Rocephin - (cefTRIAXone) 1 grams IVPB once over 30 cp mins; (mix in 50 mL NS) 22:30 Drug: Xopenex (levalbuterol) (3) 1.25 mg Route: Inhalation; ke1 22:30 Drug: AtroVENT (ipratropium) Aerosol 0.5 mg Route: Inhalation; ke1 22:30 Drug: SOLU-Medrol (methylPrednisoLONE) 125 mg Route: IVP; Site: left jugular; ke1 22:30 Drug: NS 0.9% 500 ml Route: IV; Rate: bolus; Site: left jugular; ke1 22:30 Drug: LevaQUIN (levofloxacin) 750 mg Volume: 150 ml; Route: IVPB; Infused Over: 90 ke1 mins; Site: left jugular; 23:17 Drug: Magnesium Sulfate 1 grams Route: IVPB; Infused Over: 1 hrs; Site: left jugular; ke1 Disposition Summary: 02/08/22 21:51 Hospitalization Ordered Hospitalization Status: Inpatient Admission cp Provider: Kelly Miramontes cp Condition: Stable cp Problem: new cp Symptoms: have improved cp Bed/Room Type: Standard cp Location: Telemetry/MedSurg (Inpatient)(02/09/22 13:43) bd Room Assignment: 201(02/09/22 13:43) bd Diagnosis - Other pneumonia, unspecified organism cp Forms: - Medication Reconciliation Form cp - SBAR form cp Signatures: Dispatcher [employer] EDMS SachaRobyn bd Lorrie Marquez RN Alfredito Ambriz MD MD cha Smirch, Shelby, RN RN ss Alfredito Carpio, SILVER SHEPPARD cp Milind Rose, [employer] SUR[employer] GRINDER pm1 Crispin Wallace RN RN ke1 Kelly Miramontes PA PA sb3 Corrections: (The following items were deleted from the chart) 20:47 19:31 Chest For PE Angio+CT.RAD.BRZ ordered. EDMS EDMS 21:43 20:29 Zithromax (azithromycin) 500 mg IVPB once over 1 hrs; mix in 250 mL NS ordered. cpcp 21:44 20:29 Rocephin - (cefTRIAXone) 1 grams IVPB once over 30 mins; (mix in 50 mL NS) cp ordered. cp 21:57 21:51 Telemetry/MedSurg (Inpatient) cp mw 21:57 21:51 cp mw 02/09 13:43 02/08 21:57 [facility] ER HOLD mw bd 02/09 13:43 02/08 21:57 ERHOLD- mw bd
--- NOTE | 2022-02-08 21:52 | ER ---
Nurse's Notes [facility] Name: Lazaro Doll Age: 76 yrs Sex: Male : 1945 Arrival Date: 02/08/2022 Time: 18:31 Bed 28 Private MD: Diagnosis: Other pneumonia, unspecified organism Presentation: 02/08 18:32 Chief complaint: Patient states: SOB x weeks. HX of lung CA. Pt states, "my kids got ss tired of hearing me breath like this and wanted me to come in and be seen.". Coronavirus screen: Client denies travel out of the [place] in the last 14 days. Ebola Screen: Patient denies exposure to infectious person. Patient denies travel to an Ebola-affected area in the 21 days before illness onset. Initial Sepsis Screen: Does the patient meet any 2 criteria? No. Patient's initial sepsis screen is negative. Does the patient have a suspected source of infection? No. Patient's initial sepsis screen is negative. Risk Assessment: Do you want to hurt yourself or someone else? Patient reports no desire to harm self or others. Onset of symptoms is unknown. 18:32 Method Of Arrival: Ambulatory ss 18:32 Acuity: LUCIO 2 ss Triage Assessment: 19:00 General: Appears in no apparent distress. Pain: Denies pain. Respiratory: Reports ke1 shortness of breath at rest on exertion. 02/09 04:16 Respiratory: the patient has moderate shortness of breath. ke1 Historical: - Allergies: 02/08 18:41 Aspirin; ss 18:41 Codeine; ss 18:41 Demerol; ss 18:41 Ibuprofen; ss 18:41 Iodine; ss 18:41 Latex, Natural Rubber; ss 18:41 Morphine; ss 18:41 Oxycodone; ss 18:41 PENICILLINS; ss 18:41 Sulfa (Sulfonamide Antibiotics); ss 18:41 Tetanus Vaccines \\T\\ Toxoid; ss 18:41 Unable to obtain; ss - PMHx: 18:41 chemo, Radiation; colon cancer; Hypertensive disorder; Lung CA; ss - PSHx: 18:41 bowel resection; ss - Immunization history:: Client reports receiving the 2nd dose of the Covid vaccine. - Social history:: Smoking status: Patient denies any tobacco usage or history of. Screenin/23 04:13 Abuse screen: Denies threats or abuse. Nutritional screening: No deficits noted. ke1 Tuberculosis screening: No symptoms or risk factors identified. Fall Risk No fall in past 12 months (0 pts). No secondary diagnosis (0 pts). IV access (20 points). Ambulatory Aid- None/Bed Rest/Nurse Assist (0 pts). Gait- Normal/Bed Rest/Wheelchair (0 pts) Mental Status- Oriented to own ability (0 pts). Total Galvan Fall Scale indicates No Risk (0-24 pts). Assessment: 02/08 19:00 Cardiovascular: Rhythm is sinus rhythm. Respiratory: Airway is patent Respiratory ke1 effort is unlabored, Respiratory pattern is tachypnea Breath sounds with wheezes bilaterally. 20:39 Reassessment: Hard stick unable to get iv., PA notified. ke1 Vital Signs: 18:32 BP 132 / 70; Pulse 106; Resp 19; Temp 98.3(O); Pulse Ox 90% on R/A; Weight 88.45 kg; ss Height 5 ft. 11 in. (180.34 cm); Pain 0/10; 18:32 Body Mass Index 27.20 (88.45 kg, 180.34 cm) ED Course: 18:31 Patient arrived in ED. em1 18:34 Alfredito Carpio PA is PHCP. cp 18:34 Mary Kay Valente MD is Attending Physician. cp 18:41 Triage completed. ss 18:41 Arm band placed on right wrist. ss 19:01 XRAY Chest (1 view) In Process Unspecified. EDMS 19:11 Crispin Wallace, RN is Primary Nurse. ke1 19:45 Missed attempt(s): 22 gauge in left antecubital area. ke1 19:50 Missed attempt(s): 22 gauge in right antecubital area. ke1 21:51 Kelly Miramontes PA is Hospitalizing Provider. cp 22:04 Attending Physician role handed off by Mary Kay Valente MD pilar 22:04 Alfredito Brown MD is Attending Physician. pilar 22:15 Inserted saline lock: in left EJ, using aseptic technique. ,using aseptic technique. by ke1 Alfredito SHEPPARD. 02/09 04:13 Bed in low position. Call light in reach. ke1 07:00 No provider procedures requiring assistance completed. Patient admitted, IV remains in iw place. intact, No redness/swelling at site. Administered Medications: 02/08 21:43 CANCELLED (Physician Discretion): Zithromax (azithromycin) 500 mg IVPB once over 1 hrs; cp mix in 250 mL NS 21:44 CANCELLED (Physician Discretion): Rocephin - (cefTRIAXone) 1 grams IVPB once over 30 cp mins; (mix in 50 mL NS) 22:30 Drug: Xopenex (levalbuterol) (3) 1.25 mg Route: Inhalation; ke1 22:30 Drug: AtroVENT (ipratropium) Aerosol 0.5 mg Route: Inhalation; ke1 22:30 Drug: SOLU-Medrol (methylPrednisoLONE) 125 mg Route: IVP; Site: left jugular; ke1 22:30 Drug: NS 0.9% 500 ml Route: IV; Rate: bolus; Site: left jugular; ke1 22:30 Drug: LevaQUIN (levofloxacin) 750 mg Volume: 150 ml; Route: IVPB; Infused Over: 90 ke1 mins; Site: left jugular; 23:17 Drug: Magnesium Sulfate 1 grams Route: IVPB; Infused Over: 1 hrs; Site: left jugular; ke1 Medication: 02/09 07:00 VIS not applicable for this client. iw Outcome: 02/08 21:51 Decision to Hospitalize by Provider. cp 02/09 07:00 Admitted to ER Hold. Please see [facility] for further documentation. iw Condition: stable Discharge instructions given to patient, Instructed on the need for admit, Demonstrated understanding of instructions. 15:26 Patient left the ED. iw Signatures: Dispatcher [employer] EDNV Alfredito Brown MD MD cha Williams, Irene, RN Beau Montiel em1 Rebeca Pathak RN RN ss Page, Corey, PA PA cp Ebrottie, Kouassi, RN RN ke1
[2022-02-08] MEDS ORDERED: METHYLPREDNISOLONE 125 MG INJ ONE (22:09)
[2022-02-08] MEDS ORDERED: MAGNESIUM SULFATE 1 gm IVPB 1 GM/100 ML BAG IV ONE (22:10)
[2022-02-08] MEDS ORDERED: Levofloxacin 750mg IV 750 MG/150 ML BAG IV ONE (22:10)
[2022-02-08] MEDS ORDERED: IPRATROPIUM BROM 0.5MG/2.5ML ONE (22:10)
[2022-02-08] MEDS ORDERED: LEVALBUTEROL 1.25 MG/3 ML NEB ONE (22:10)
[2022-02-08] MEDS ORDERED: NA CHLORIDE 0.9% 500 ML ONE (22:10)
--- NOTE | 2022-02-08 22:42 | P.HP ---
Certification for Inpatient Patient admitted to: Inpatient With expected LOS: <2 Midnights Patient will require the following post-hospital care: None Practitioner: I am a practitioner with admitting privileges, knowledge of patient current condition, hospital course, and medical plan of care. Services: Services provided to patient in accordance with Admission requirements found in Title 42 Section 412.3 of the Code of Federal Regulations Patient History Date of Service: 02/08/22 Reason for admission: Pneumonia History of Present Illness: Patient is a 76-year-old male with PMH of HTN, lung cancer, and colon cancer who presented to the ED with complaints of shortness of breath, productive cough, and weakness x 3 weeks. Patient was diagnosed with lung cancer in June 2021 and finished chemo and radiation in November 2021. He has a follow-up appointment scheduled with his oncologist in 2 days. PET scan from 3 days ago- "Large area of consolidated soft tissue left hilar and parahilar region noted with FDG elevation to 4.8 SUV. This is most compatible with post therapy related changes. At this time it is not possible to distinguish any potential residual neoplasia within this area." Work-up today revealed WBC 13, magnesium 1.7, Pro-Quentin 0.29. Patient saturating 90% on room air and tachycardic but afebrile. He was given Levaquin, breathing treatment, magnesium, and Solu- Medrol in the ED. We will admit patient for further evaluation and treatment. Home medications list reviewed: Yes - Past Medical/Surgical History Diabetic: No -: Hypertension -: Lung Cancer (finished chemo/radiation November 2021) -: Colon Cancer -: Bowel Resection Psychosocial/ Personal History: Patient lives at home alone. - Social History Smoking Status: Former smoker Alcohol use: No CD- Drugs: No Caffeine use: Yes Place of Residence: Home Review of Systems General: Weakness Respiratory: Cough, Shortness of Breath, Sputum Physical Examination - Physical Exam General: Alert, In no apparent distress HEENT: Atraumatic, PERRLA, EOMI, Sclerae nonicteric Neck: Supple, 2+ carotid pulse no bruit, No LAD, Without JVD or thyroid abnormality Respiratory: Diminished, Crackles/rales, Expiratory wheezes, Other (labored juan ramon athing) Cardiovascular: Regular rate/rhythm, Normal S1 S2 Gastrointestinal: Normal bowel sounds, No tenderness Musculoskeletal: No tenderness Integumentary: No rashes Neurological: Normal speech, Normal strength at 5/5 x4 extr, Normal tone, Normal affect - Studies Laboratory Data (last 24 hrs) 02/08/22 20:11: PT 16.1 H, INR 1.45 02/08/22 20:11: WBC 13.1 H, Hgb 10.8 L, Hct 32.2 L, Plt Count 278 02/08/22 20:11: Sodium 139, Potassium 4.0, BUN 20 H, Creatinine 0.95, Glucose 109 H, Magnesium 1.7 L D, Total Bilirubin 0.3, AST 21, ALT 31, Alkaline Phosphatase 59 Assessment and Plan - Problems (Diagnosis) (1) Pneumonia Current Visit: Yes Status: Acute Qualifiers: Pneumonia type: due to unspecified organism Laterality: left Lung location: unspecified part of lung Qualified Code(s): J18.9 - Pneumonia, unspecified organism (2) Sepsis Current Visit: Yes Status: Acute Qualifiers: Sepsis type: sepsis due to unspecified organism Sepsis acute organ dysfunction status: without acute organ dysfunction Qualified Code(s): A41.9 - Sepsis, unspecified organism (3) Hypertension Current Visit: No Status: Chronic Qualifiers: Hypertension type: primary hypertension Qualified Code(s): I10 - Essential (primary) hypertension (4) Pulmonary malignant neoplasm Current Visit: Yes Status: Acute Qualifiers: Laterality: left Lung location: hilum of lung Qualified Code(s): 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 Will continue and add zosyn for additional coverage -Pulmonology consulted -Supplemental O2, breathing treatments, incentive spirometry and IV solumedrol -Maintenance IVF as patient meets sepsis criteria. Received bolus in ED -Monitor and replete electrolytes as per protocol -Heart healthy diet -blood cultures drawn -Reconcile and continue home medications -Lovenox for VTE ppx Discharge Plan: Home Plan to discharge in: 48 Hours - Advance Directives Does patient have a Living Will: No Does patient have a Durable POA for Healthcare: No - Code Status/Comfort Care Code Status Assessed: Yes (Full) Critical Care: No Time Spent Managing Pts Care (In Minutes): 70
[2022-02-09] MEDS ORDERED: ALBUTEROL 2.5 MG/3 ML NEB SOL NEB PRN (08:35)
[2022-02-09] MEDS: NA CHLORIDE 0.9% 1,000 ML IV SCH ×3 (08:35→18:35)
[2022-02-09] MEDS ORDERED: ACETAMINOPHEN 500 MG TAB PO PRN (08:35)
[2022-02-09] MEDS ORDERED: ONDANSETRON 4 MG/2 ML VIAL IV PRN (08:35)
[2022-02-09 09:13] LABS: Absolute Lymphocytes (CBC) 0.2 K/uL (0.7-4.9); Hematocrit 33.3 % (39.6-49.0); Lymphocytes % 1.9 % (15.3-44.8); MPV 7.2 fL (7.6-11.3); RBC Red Blood Cell Count 4.06 M/uL (4.33-5.43)
[2022-02-09 09:32] LABS: Albumin 2.6 g/dL (3.4-5.0); Bilirubin Total 0.3 mg/dL (0.2-1.0); Protein, Total 7.5 g/dL (6.4-8.2)
[2022-02-09] MEDS ORDERED: ENOXAPARIN 40 MG/0.4 ML SQ ONE (09:54)
[2022-02-09] MEDS ORDERED: Levofloxacin 750mg IV 750 MG/150 ML BAG IV ONE (09:54)
[2022-02-09] MEDS ORDERED: NA CHLORIDE 0.9% 100 ML IV ONE (09:54)
[2022-02-09] MEDS ORDERED: PIPERACIL/TAZO 3.375 GM VIAL IV ONE (09:55)
[2022-02-09] MEDS ORDERED: NA CHLORIDE 0.9% 1,000 ML ONE (09:55)
[2022-02-09] MEDS: PIPER TAZO 3.375 GM in NA CHLORIDE 0.9% 100 ML IV SCH ×2 (11:03→16:50)
[2022-02-09] MEDS: Levofloxacin 750mg IV 750 MG/150 ML BAG IV SCH (11:03)
[2022-02-09] MEDS: ENOXAPARIN 40 MG/0.4 ML SQ SCH (11:04)
[2022-02-09] MEDS: METHYLPREDNISOLONE 125 MG INJ IV SCH ×3 (11:09→17:17)
[2022-02-09] MEDS ORDERED: METHYLPREDNISOLONE 125 MG INJ ONE (11:14)
--- NOTE | 2022-02-09 11:23 | EKG ---
Test Date: 2022-02-09 Test Time: 06:06:19 Industrial Engineering Director: LESTER MEASUREMENT RESULTS: Intervals: Rate: 82 CO: 138 QRSD: 76 QT: 378 QTc: 441 [place]: P: 27 CO: 138 QRS: 52 T: 37 INTERPRETIVE STATEMENTS: Normal sinus rhythm Normal ECG Compared to ECG 07/19/2021 15:00:11 Sinus arrhythmia no longer present ST (T wave) deviation no longer present Electronically Signed On 02-09-22 11:23:11 CDT by Luis Helm
[2022-02-09 12:39] VITALS: BMI 27.6
[2022-02-09] MEDS: METOPROLOL TAR 50 MG TAB PO SCH (21:00)
[2022-02-09] MEDS: CLONIDINE HCL 0.1 MG PO SCH (21:00)
[2022-02-09] MEDS: SERTRALINE HCL 100 MG TAB PO SCH (21:16)
[2022-02-10] MEDS: METHYLPREDNISOLONE 125 MG INJ IV SCH ×2 (00:18→05:43)
[2022-02-10] MEDS: PIPER TAZO 3.375 GM in NA CHLORIDE 0.9% 100 ML IV SCH ×3 (00:18→16:18)
[2022-02-10] MEDS: NA CHLORIDE 0.9% 1,000 ML IV SCH ×3 (03:34→16:17)
[2022-02-10 05:26] LABS: Absolute Lymphocytes (CBC) 0.2 K/uL (0.7-4.9); Hematocrit 31.3 % (39.6-49.0); Lymphocytes % 1.5 % (15.3-44.8); MPV 7.4 fL (7.6-11.3); RBC Red Blood Cell Count 3.89 M/uL (4.33-5.43)
[2022-02-10 05:50] LABS: Albumin 2.6 g/dL (3.4-5.0); Bilirubin Total 0.2 mg/dL (0.2-1.0); Magnesium 1.7 mg/dL (1.8-2.4); Potassium 3.3 mmol/L (3.5-5.1); Protein, Total 7.4 g/dL (6.4-8.2)
[2022-02-10] MEDS ORDERED: MAGNESIUM SULFATE 1 gm IVPB 1 GM/100 ML BAG IV ONE (06:32)
--- NOTE | 2022-02-10 07:09 | P.PN ---
Date of Service: 02/10/22 Subjective: no acute events overnight slight improvement, still short of breath, +cough minimal ambulation ROS: 10 point ROS as noted above, otherwise negative Physical Exam: Gen: Alert, oriented x3, NAD HEENT: normal conjunctiva, sclera anicteric CV: Regular rate/rhythm, no edema Pulm: b/l crackles, mild expiratory wheeze Abd: soft, nontender, nondistended Problem List: sepsis secondary to community-acquired pneumonia acute hypoxemic respiratory failure secondary to pneumonia h/o HTN h/o lung cancer low grade temps yesterday oxygen supplementation weaned this morning borderline O2 sats improving slowly continues with cough suspect symptoms secondary to pneumonia. CT with unchanged lung cancer prelim culture: no growth Time Spent Managing Pts Care (In Minutes): 35
[2022-02-10] MEDS ORDERED: POTASSIUM 25 MEQ EFFERV TAB PO ONE (07:21)
[2022-02-10] MEDS ORDERED: MAGNESIUM OXIDE 400 MG TAB PO ONE (07:22)
[2022-02-10 07:27] LABS: Urine Appearance CLEAR (Clear); Urine Color YELLOW (Yellow)
[2022-02-10 07:28] LABS: Urine Bilirubin NEGATIVE (Negative); Urine Blood TRACE (Negative); Urine Glucose Trace (Negative); Urine Microscopic Reflex ORDER UMIC; Urine Protein NEGATIVE (Negative); Urine Urobilinogen 0.2 mg/dL (0.2-1.0)
[2022-02-10 07:38] LABS: Urine Bacteria <20 /HPF (NONE SEEN); Urine RBC <5 /HPF (NONE SEEN)
[2022-02-10] MEDS: Levofloxacin 750mg IV 750 MG/150 ML BAG IV SCH (08:34)
[2022-02-10] MEDS: SERTRALINE HCL 100 MG TAB PO SCH ×2 (08:35→21:21)
[2022-02-10] MEDS: ENOXAPARIN 40 MG/0.4 ML SQ SCH (08:35)
[2022-02-10] MEDS: predniSONE 20 MG TAB PO SCH ×2 (08:36→21:21)
[2022-02-10] MEDS: METOPROLOL TAR 50 MG TAB PO SCH ×2 (08:36→21:22)
[2022-02-10] MEDS: CLONIDINE HCL 0.1 MG PO SCH ×3 (08:37→21:00)
[2022-02-10] MEDS ORDERED: ATORVASTATIN 20 MG TAB PO SCH (09:00)
[2022-02-10] MEDS ORDERED: NIFEDIPINE 90 MG PO SCH (09:00)
[2022-02-10] MEDS ORDERED: GUAIFENESIN/CODEINE 5ML UCUP PO PRN (16:01)
[2022-02-10] MEDS ORDERED: BENZONATATE 100 MG CAP PO PRN (16:01)
[2022-02-11] MEDS: PIPER TAZO 3.375 GM in NA CHLORIDE 0.9% 100 ML IV SCH (01:25)
[2022-02-11] MEDS: NA CHLORIDE 0.9% 1,000 ML IV SCH (01:36)
[2022-02-11 04:28] LABS: Hematocrit 31.2 % (39.6-49.0); MPV 7.4 fL (7.6-11.3); RBC Red Blood Cell Count 3.87 M/uL (4.33-5.43)
[2022-02-11 04:41] LABS: Albumin 2.7 g/dL (3.4-5.0); Bilirubin Total 0.2 mg/dL (0.2-1.0); Magnesium 1.8 mg/dL (1.8-2.4); Protein, Total 7.4 g/dL (6.4-8.2)
[2022-02-11 04:45] VITALS: O2SAT 95
[2022-02-11] MEDS ORDERED: MAGNESIUM SULFATE 1 gm IVPB 1 GM/100 ML BAG IV ONE (07:00)
[2022-02-11 08:40] VITALS: BP 174/83; TEMP 97.7
--- NOTE | 2022-02-11 21:41 | P.DS ---
Admission Date: 02/08/22 Discharge Date: 02/11/22 Disposition: ROUTINE DISCHARGE Discharge Condition: GOOD Reason for Admission: Pneumonia Procedures: Problem List: sepsis secondary to community-acquired pneumonia acute hypoxemic respiratory failure secondary to pneumonia h/o HTN h/o lung cancer Brief History of Present Illness: 76yo M, PMH: HTN, lung cancer, colon cancer Presented to ED due to shortness of breath, productive cough x3 weeks. Patient was diagnosed with lung cancer in June 2021 and finished chemo and radiation in November 2021. He has a follow-up appointment scheduled with his oncologist in 2 days. PET scan from 3 days ago- "Large area of consolidated soft tissue left hilar and parahilar region noted with FDG elevation to 4.8 SUV. This is most compatible with post therapy related changes. At this time it is not possible to distinguish any potential residual neoplasia within this area." Work-up in ED revealed WBC 13, magnesium 1.7, Pro-Quentin 0.29. Patient oxygen saturation: ~88-90% on room air, afebrile, and sinus tachycardia. He was given Levaquin, breathing treatment, magnesium, and Solu-Medrol in the ED. Hospital Course: Patient has chest x-ray which noted L lung / hilar opacity, similarly seen prior imaging / recent PET scan. He was empirically treated for pneumonia with IV zosyn and levaquin. He was noted to have wheezing on exam and was treated with steroids and nebulizers as well. Blood cultures and sputum cultures/ gram stains were negative. He had daily improvement and was breathing more comfortably on room air. He remained afebrile. Mild elevated procalcitonin improved. Leukocytosis was noted to increase which is suspected to be due to steroids, as patient is clinically improving and afebrile. Discharged home to complete 7 more days of antibiotics - augmentin and levaquin, and short steroid taper. He will have close follow up with his PCP and Oncologist in the next week. Discussed return precautions. Vital Signs/Physical Exam: Temp Pulse Resp BP Pulse Ox 97.7 F 60 16 174/83 H 97 02/11/22 08:00 02/11/22 08:00 02/11/22 08:00 02/11/22 08:00 02/11/22 08:00 General: Alert, In no apparent distress, Oriented x3 HEENT: Mucous membr. moist/pink, Sclerae nonicteric Respiratory: Expiratory wheezes (mild bilateral) Cardiovascular: No edema, Regular rate/rhythm Gastrointestinal: Soft and benign, Non-distended, No tenderness Musculoskeletal: No erythema, No tenderness Integumentary: No significant lesion Neurological: Normal speech, Normal affect Laboratory Data at Discharge: WBC 17.8 K/uL (4.3-10.9) H D 02/11/22 03:46 Hgb 10.3 g/dL (13.6-17.9) L 02/11/22 03:46 Hct 31.2 % (39.6-49.0) L 02/11/22 03:46 Plt Count 346 K/uL (152-406) D 02/11/22 03:46 PT 16.1 SECONDS (9.5-12.5) H 02/08/22 20:11 INR 1.45 02/08/22 20:11 Sodium 142 mmol/L (136-145) 02/11/22 03:46 Potassium 4.0 mmol/L (3.5-5.1) 02/11/22 03:46 BUN 29 mg/dL (7-18) H 02/11/22 03:46 Creatinine 1.13 mg/dL (0.55-1.3) 02/11/22 03:46 Glucose 122 mg/dL (74-106) H 02/11/22 03:46 Magnesium 1.8 mg/dL (1.8-2.4) 02/11/22 03:46 Total Bilirubin 0.2 mg/dL (0.2-1.0) 02/11/22 03:46 AST 62 U/L (15-37) H 02/11/22 03:46 ALT 68 U/L (12-78) 02/11/22 03:46 Alkaline Phosphatase 60 U/L (45-117) 02/11/22 03:46 Home Medications: Atorvastatin Calcium 1 tab PO DAILY 02/09/22 Clonidine HCl [Clonidine HCl ER] 1 tab PO TID 02/09/22 Metoprolol Tartrate [Lopressor*] 1 tab PO BID 02/09/22 Nifedipine [Nifedipine ER] 1 tab PO DAILY 02/09/22 Sertraline [Zoloft*] 1 tab PO BID 02/09/22 Amox/Clavulanate [Augmentin 875-125 Tab] 875 mg PO BID 7 Days #14 tab 02/11/22 Benzonatate [Tessalon Perle*] 100 mg PO TID PRN 7 Days #21 cap 02/11/22 levoFLOXacin [Levaquin] 750 mg PO DAILY 7 Days #7 tab 02/11/22 predniSONE [Prednisone*] 20 mg PO SEECOM 7 Days #10 tab 02/11/22 New Medications: Amox/Clavulanate [Augmentin 875-125 Tab] 875 mg PO BID 7 Days #14 tab levoFLOXacin [Levaquin] 750 mg PO DAILY 7 Days #7 tab predniSONE [Prednisone*] 20 mg PO SEECOM 7 Days #10 tab Benzonatate [Tessalon Perle*] 100 mg PO TID PRN 7 Days #21 cap PRN Reason: Cough Time spent managing pt's care (in minutes): 45
== END 2022-02-11 10:30 | disposition home or self-care (01) | DRG 871 ==
LOC: ER 18:26 → ERHOLD 22:27 → 2ND 02-09 15:27
PROVIDERS: ADMIT Internal Medicine; ATTEND Internal Medicine
PROC: 05HQ33Z Insertion of Infusion Device into Left External Jugular Vein, Percutaneous Approach (ICD-10-PCS; principal; 2022-02-08)
DX: A41.9 Sepsis, unspecified organism (principal); J18.9 Pneumonia, unspecified organism; J96.01 Acute respiratory failure with hypoxia; C34.90 Malignant neoplasm of unspecified part of unspecified bronchus or lung; I10 Essential (primary) hypertension; Z85.038 Personal history of other malignant neoplasm of large intestine; Z88.0 Allergy status to penicillin; Z88.2 Allergy status to sulfonamides; Z91.040 Latex allergy status; Z20.822 Contact with and (suspected) exposure to COVID-19
CPT/HCPCS: 36415; 71045; 78815; 80048; 80053; 80076; 81003; 81015; 83605; 83735; 83880; 84132; 84145; 84484; 85025; 85027; 85610; 87040; 87070; 87205; 93005; 94010; 94760; 96374; 96375; 99285; A9552; J1650; J2405; J2543; J2930; J3475; J7030; J7040; J7512; U0003

== ENCOUNTER 2022-04-06 08:52 | Emergency (ER) | payer OTHER ==
[2022-04-06 09:24] LABS: Absolute Lymphocytes (CBC) 0.5 K/uL (0.7-4.9); Lymphocytes % 4.8 % (15.3-44.8); MCV 77.4 fL (80-100); MPV 7.1 fL (7.6-11.3); RBC Red Blood Cell Count 4.26 M/uL (4.33-5.43)
[2022-04-06 09:41] LABS: Potassium 3.4 mmol/L (3.5-5.1); Troponin High Sensitivity 6.5 pg/mL (<58.9)
--- NOTE | 2022-04-06 09:47 | RAD REPORT ---
EXAM DESCRIPTION: RAD - Chest Single View - 04/06/2022 9:34 am CLINICAL HISTORY: CHEST PAIN COMPARISON: Portable chest 02/08/2022, radiation planning study 09/02/2021, PET-CT 02/05/2022 TECHNIQUE: AP portable chest image was obtained 04/06/2022 9:34 am . FINDINGS: Right lung field is clear. No new or progressive right lung field finding. Interstitial an d alveolar opacities are present in the left perihilar region not substantially different from the po rtable imaging or the PET-CT study. This is a site of known malignancy. No gross evidence for progres marci. Left base and left upper lung field are clear. Heart and vasculature are normal. No measurable pleural effusion and no pneumothorax. No acute bony abnormality seen. No acute aortic findings suspected. IMPRESSION: Prominent left perihilar opacification in this patient with known malignancy in this reg ion. The left perihilar findings are not grossly different from recent January 2022 imaging.
--- NOTE | 2022-04-06 12:57 | RAD REPORT ---
EXAM DESCRIPTION: NM - Vent Perfusion VQ Scan - 04/06/2022 12:27 pm CLINICAL HISTORY: Chest pain, Hx of Lung CA. Allergic to Iodine COMPARISON: Portable chest 04/06/2022, PET-CT study 02/05/2022 TECHNIQUE: The patient was administered 19.9 mCi Xenon 133 gas with posterior projection inspiration , equilibrium, and washout views obtained. The patient was then administered 7.7 mCi Tc-99m MAA label ed RBCs followed by standard 8 view protocol. FINDINGS: There is good distribution of the radiopharmaceutical in the right lung field with moderat e severity diffuse air trapping throughout the right lung field. No right-side ventilation defect. Th ere is markedly diminished ventilation of the left lung field with near absence of activity in the up per left lung field. 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 There is significant stenosis at the proximal aspect of the stent. There is a large perfusion defect in the upper left lung field matching the ventilation defect. No f ocal defects in the right lung field. IMPRESSION: Low probability V/Q scan for pulmonary embolism. The left lung field ventilation and pe rfusion abnormalities can be accounted for by the malignancy and tumor-related intervention in the le ft perihilar region. Patient has moderate severity air trapping in the aerated portions of the lung lee.
--- NOTE | 2022-04-06 13:48 | ER ---
Nurse's Notes [facility] Name: Lazaro Doll Age: 76 yrs Sex: Male : 1945 Arrival Date: 04/06/2022 Time: 08:54 Bed 20 Private MD: Diagnosis: Chest pain, unspecified;Dyspnea Presentation: 04/06 08:56 Chief complaint: Patient states: chest pain and shortness of breath. Coronavirus mil[place] screen: Vaccine status: Patient reports receiving the 2nd dose of the covid vaccine. Ebola Screen: Patient denies travel to an Ebola-affected area in the 21 days before illness onset. Initial Sepsis Screen: Does the patient meet any 2 criteria? No. Patient's initial sepsis screen is negative. Does the patient have a suspected source of infection? No. Patient's initial sepsis screen is negative. Risk Assessment: Do you want to hurt yourself or someone else? Patient reports no desire to harm self or others. Onset of symptoms was April 06, 2022. 08:56 Method Of Arrival: EMS: [facility] 08:56 Acuity: LUCIO 3 milton Triage Assessment: 09:00 General: Appears in no apparent distress. Behavior is calm, cooperative. Pain: milton Complains of pain in chest. Cardiovascular: Reports chest pain, shortness of breath. Respiratory: Reports shortness of breath Breath sounds are diminished bilaterally. Historical: - Allergies: 09:08 Iodine; milton - Home Meds: 09:00 atorvastatin 20 mg Oral tab 1 tab once daily [Active]; clonidine HCl 0.1 mg Oral tab 1 milton tab 3 times per day [Active]; metoprolol tartrate 50 mg Oral tab 1 tab 2 times per day [Active]; nifedipine 90 mg Oral TbER 1 tab once daily [Active]; sertraline 100 mg Oral tab twice a day [Active]; - PMHx: 09:00 chemo, Radiation; colon cancer; Hypertensive disorder; Lung CA; milton - PSHx: 09:00 bowel resection; milton - Immunization history:: Adult Immunizations up to date. - Social history:: Smoking status: Patient/guardian denies using tobacco, the patient reports quitting approximately 25 years ago. Screenin:02 Abuse screen: Denies threats or abuse. Denies injuries from another. Nutritional milton screening: No deficits noted. Tuberculosis screening: No symptoms or risk factors identified. Fall Risk None identified. Assessment: 09:02 Pain: Complains of pain in chest. Cardiovascular: Reports chest pain, shortness of milton breath. Respiratory: Reports shortness of breath Breath sounds are diminished bilaterally. 13:05 Reassessment: Patient appears in no apparent distress at this time. No changes from hb previously documented assessment. Patient and/or family updated on plan of care and expected duration. Pain level reassessed. Vital Signs: 08:56 BP 147 / 73; Pulse 86; Resp 19; Temp 98.3(O); Pulse Ox 98% on 2 lpm NC; Weight 88.45 milton kg; Height 5 ft. 10 in. (177.80 cm); 10:44 BP 123 / 68; Pulse 81; Resp 17; Pulse Ox 99% on 2 lpm NC; milton 13:05 BP 97 / 61; Pulse 88; Resp 18; Pulse Ox 95% on 2 lpm NC; hb 08:56 Body Mass Index 27.98 (88.45 kg, 177.80 cm) milton ED Course: 08:54 Patient arrived in ED. em1 08:56 Saida Gipson, RN is Primary Nurse. milton 08:59 Triage completed. milton 09:00 Arm band placed on. milton 09:01 EKG done, by ED staff, reviewed by Juma Wilkinson DO. [email or web address] 09:02 Juma Wilkinson DO is Attending Physician. ms3 09:02 No provider procedures requiring assistance completed. Maintain EMS IV. Gauge \T\ site: 20g rhand. 09:02 Patient has correct armband on for positive identification. Bed in low position. milton 09:18 Basic Metabolic Panel Sent. em1 09:18 CBC with Diff Sent. em1 09:18 Troponin HS Sent. em1 09:35 XRAY Chest (1 view) In Process Unspecified. EDMS 12:29 VQ scan (Nuclear Medicine) In Process Unspecified. EDMS 14:14 IV discontinued, intact, Pressure dressing applied. milton Administered Medications: 14:02 Drug: Ketorolac 10 mg Route: IVP; Site: right hand; milton 14:03 Follow up: Response: No adverse reaction milton Medication: 09:02 VIS not applicable for this client. milton Outcome: 13:48 ER care complete, transfer ordered by . ms3 13:57 Discharge ordered by . ms3 14:14 Discharged to home ambulatory. milton 14:14 Condition: good 14:14 Discharge instructions given to patient. 14:14 Patient left the ED. milton Signatures: Dispatcher [employer] Beau Gipson em1 Saida Graham, MIKEL RN Juma Hsu, DO ms3 Trinh-Saida Foy RN RN ha Campbell, Kaitlyn [email or web address] Corrections: (The following items were deleted from the chart) 09:06 09:00 Allergies: Iodine; milton milton 09:08 09:05 Allergies: Iodine [Inactive]; milton milton
--- NOTE | 2022-04-06 13:49 | EDPHYS ---
Physician Documentation [facility] Name: Lazaro Doll Age: 76 yrs Sex: Male : 1945 Arrival Date: 04/06/2022 Time: 08:54 Bed 20 Private MD: ED Physician Juma Wilkinson HPI: 04/06 10:24 This 76 yrs old Male presents to ER via EMS with complaints of chest pain. ms3 10:24 The patient or guardian reports chest pain that is located primarily in the substernal ms3 area. Onset: 2 hour(s) ago. The pain does not radiate. Associated signs and symptoms: Pertinent positives: cough, Pertinent negatives: abdominal pain, shortness of breath. The chest pain is described as. Duration: The patient or guardian reports a single episode, that is still ongoing, but improving. Modifying factors: The symptoms are alleviated by nothing. the symptoms are aggravated by nothing. Severity of pain: At its worst the pain was moderate in the emergency department the pain has improved is a 5 / 10. EMS care prior to arrival includes: aspirin. Historical: - Allergies: 09:08 Iodine; milton - Home Meds: 09:00 atorvastatin 20 mg Oral tab 1 tab once daily [Active]; clonidine HCl 0.1 mg Oral tab 1 milton tab 3 times per day [Active]; metoprolol tartrate 50 mg Oral tab 1 tab 2 times per day [Active]; nifedipine 90 mg Oral TbER 1 tab once daily [Active]; sertraline 100 mg Oral tab twice a day [Active]; - PMHx: 09:00 chemo, Radiation; colon cancer; Hypertensive disorder; Lung CA; milton - PSHx: 09:00 bowel resection; milton - Immunization history:: Adult Immunizations up to date. - Social history:: Smoking status: Patient/guardian denies using tobacco, the patient reports quitting approximately 25 years ago. ROS: 10:24 Constitutional: Negative for fever, and chills. Eyes: Negative for injury, pain, ms3 redness, and discharge, Neck: Negative for injury, pain, and swelling. 10:24 Abdomen/GI: Negative for abdominal pain, nausea, vomiting, diarrhea, and constipation, MS/Extremity: Negative for injury and deformity, Skin: Negative for injury, rash, and discoloration, Neuro: Negative for headache, weakness, numbness, tingling. 10:24 Cardiovascular: Positive for chest pain. 10:24 Respiratory: Positive for cough, with no reported sputum. 10:24 All other systems are negative. Exam: 09:01 ECG was reviewed by the Attending Physician. ms3 10:24 Constitutional: This is a well developed, well nourished patient who is awake, alert, ms3 and in no acute distress. Head/Face: Normocephalic, atraumatic. Neck: Trachea midline, no cervical lymphadenopathy. Supple, full range of motion without nuchal rigidity, or vertebral point tenderness. No Meningismus. Chest/axilla: Normal chest wall appearance and motion. Nontender with no deformity. Cardiovascular: Regular rate and rhythm with a normal S1 and S2. No gallops, murmurs, or rubs. Normal PMI, no JVD. No pulse deficits. Respiratory: Lungs have equal breath sounds bilaterally, clear to auscultation and percussion. No rales, rhonchi or wheezes noted. No increased work of breathing, no retractions or nasal flaring. Abdomen/GI: Soft, non-tender, with normal bowel sounds. No distension or tympany. No guarding or rebound. No evidence of tenderness throughout. Skin: Warm, dry with normal turgor. Normal color with no rashes, no lesions, and no evidence of cellulitis. Psych: Awake, alert, with orientation to person, place and time. Behavior, mood, and affect are within normal limits. Vital Signs: 08:56 BP 147 / 73; Pulse 86; Resp 19; Temp 98.3(O); Pulse Ox 98% on 2 lpm NC; Weight 88.45 milton kg; Height 5 ft. 10 in. (177.80 cm); 10:44 BP 123 / 68; Pulse 81; Resp 17; Pulse Ox 99% on 2 lpm NC; milton 13:05 BP 97 / 61; Pulse 88; Resp 18; Pulse Ox 95% on 2 lpm NC; hb 08:56 Body Mass Index 27.98 (88.45 kg, 177.80 cm) milton MDM: 09:02 Patient medically screened. ms3 10:24 Differential diagnosis: abnormal EKG, acute myocardial infarction, acute pericarditis, ms3 pneumonia, pulmonary embolus. 13:57 Data reviewed: vital signs, nurses notes, lab test result(s), EKG, radiologic studies. ms3 Counseling: I had a detailed discussion with the patient and/or guardian regarding: the historical points, exam findings, and any diagnostic results supporting the discharge/admit diagnosis, lab results, radiology results. ED course: Discussed EKG, Labs, VQ scan, CXR , PE findings with patient. Encouraged patient to allow transfer to [facility]; however, patient declines. Patient states he has an appointment with his pulmonologists that he has waited for 2 months to obtain. 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 Patient understands/ agrees with plan. All questions answered. Return precautions given to include worsening symptoms, or any other concerns. Patient is improved, in NAD, non-toxic appearing, ambulatory in ED, speaking full sentences. . 04/06 09:03 Order name: Basic Metabolic Panel; Complete Time: 10:08 ms3 04/06 09:03 Order name: CBC with Diff; Complete Time: 10:08 ms3 04/06 09:03 Order name: Troponin HS; Complete Time: 10:08 ms3 04/06 09:03 Order name: XRAY Chest (1 view); Complete Time: 10:08 ms3 04/06 10:22 Order name: VQ scan (Nuclear Medicine); Complete Time: 13:24 ms3 04/06 09:03 Order name: EKG; Complete Time: 09:03 ms3 04/06 09:03 Order name: Cardiac monitoring; Complete Time: 09:19 ms3 04/06 09:03 Order name: EKG - Nurse/Tech; Complete Time: 09:09 ms3 04/06 09:03 Order name: IV Saline Lock; Complete Time: 09:18 ms3 04/06 09:03 Order name: Labs collected and sent; Complete Time: 09:18 ms3 04/06 09:03 Order name: O2 Per Protocol; Complete Time: :18 ms3 04/06 09:03 Order name: O2 Sat Monitoring; Complete Time: 09:18 ms3 EC:01 Rate is 80 beats/min. Rhythm is regular. QRS Unity is Normal. DC interval is normal. QRS ms3 interval is normal. Clinical impression: NSR w/ Non-specific ST/T Changes. Interpreted by me. Reviewed by me. Administered Medications: 14:02 Drug: Ketorolac 10 mg Route: IVP; Site: right hand; milton 14:03 Follow up: Response: No adverse reaction milton Disposition Summary: 04/06/22 13:57 Discharge Ordered Location: Home ms3 Condition: Stable(04/06/22 13:57) ms3 Diagnosis - Chest pain, unspecified(04/06/22 13:57) ms3 - Dyspnea(04/06/22 13:57) ms3 Followup: ms3 - With: Private Physician - When: 2 - 3 days - Reason: Recheck today's complaints Discharge Instructions: - Discharge Summary Sheet ms3 - Nonspecific Chest Pain, Adult ms3 Forms: - Medication Reconciliation Form ms3 - Thank You Letter ms3 - Antibiotic Education ms3 - Prescription Opioid Use ms3 Prescriptions: - Doxycycline Monohydrate 100 mg Oral Tablet - take 1 tablet by ORAL route every 12 hours for 10 days; 20 tablet; Refills: 0, ms3 Product Selection Permitted - Tessalon Perles 100 mg Oral Capsule - take 1 capsule by ORAL route every 8 hours As needed; 15 capsule; Refills: 0, ms3 Product Selection Permitted Signatures: Dispatcher [employer] EDMS Juma Wilkinson DO DO ms3 Saida Gipson RN RN milton Corrections: (The following items were deleted from the chart) 09:06 09:00 Allergies: Iodine; milton milton 09:08 09:05 Allergies: Iodine [Inactive]; milton milton 13:56 13:48 . ms3 ms3 13:56 13:48 [facility] ms3 ms3 13:56 13:48 Higher level of care ms3 ms3 13:56 13:48 Stable ms3 ms3 13:56 13:48 new ms3 ms3 13:56 13:48 are unchanged ms3 ms3 13:56 13:48 Chest pain, unspecified ms3 ms3 13:56 13:48 Dyspnea ms3 ms3
[2022-04-06] MEDS ORDERED: MORPHINE 4 MG/ML SYR ONE (13:59)
[2022-04-06] MEDS ORDERED: KETOROLAC 30 MG/ML INJ ONE (14:05)
[2022-04-06 14:22] VITALS: TEMP 98.3
[2022-04-06 14:25] VITALS: BP 97/61; O2SAT 95
--- NOTE | 2022-04-07 08:18 | EKG ---
Test Date: 2022-04-06 Test Time: 09:01:01 [employer] Agent: BLANCHE MEASUREMENT RESULTS: Intervals: Rate: 80 MA: 126 QRSD: 82 QT: 390 QTc: 449 [place]: P: 27 MA: 126 QRS: 72 T: 52 INTERPRETIVE STATEMENTS: Sinus rhythm with marked sinus arrhythmia ST abnormality, possible digitalis effect Abnormal ECG Compared to ECG 02/09/2022 06:06:19 ST (T wave) deviation now present Electronically Signed On 04-07-22 08:12:52 CDT by Luis Helm
== END 2022-04-06 14:14 | disposition home or self-care (01) ==
LOC: ER 08:52
DX: R07.9 Chest pain, unspecified (principal); R06.00 Dyspnea, unspecified; I10 Essential (primary) hypertension; Z85.118 Personal history of other malignant neoplasm of bronchus and lung; Z85.038 Personal history of other malignant neoplasm of large intestine; Z91.048 Other nonmedicinal substance allergy status
CPT/HCPCS: 93005; 85025; 80048; 36415; 84484; 71045; 78582; 96374; 99284; A9558; A9540